=== PATIENT | male | born 1960 | race Caucasian/White ===

== ENCOUNTER 2018-07-05 19:29 | Inpatient (IN) | payer BC ==
[~2018-07-05] VITALS: Ht 177.8 cm; Wt 130.0 kg
[~2018-07-05 19:29] MED LIST: AMLO10 PO; AMOX875 PO; ATEN50 PO; BUPR150ER PO; CHLO25B PO; CLOP75 PO; CYCL10 PO; Crestor40 MG PO; GABA300 PO; HYDMOR2 PO; Isosorbide Mono60 MG PO; KETO10 PO; LEVFLO250 PO; LISI5 PO; Levaquin750 MG PO; METO25 PO; MORP15ER PO; MORP60ER PO; NITR.4SL SL; NORT25 PO; Naprosyn500 MG PO; Norco 10-325 T1 EACH PO; OXYC10TA19 PO; OXYC15ER PO; Pyridium200 MG PO; SPIHYD PO
[2018-07-05 19:48] LABS: BASOPHILS ABSOLUTE AUTO 0.08 K/mm3 (0.00-0.23); BASOPHILS PERCENT AUTO 1 % (0-2); EOSINOPHILS ABSOLUTE AUTO 0.21 K/mm3 (0.00-0.68); EOSINOPHILS PERCENT AUTO 1 % (0-6); Hemoglobin 15.3 g/dL (13.5-17.5); IMMATURE GRAN ABSOLUTE AUTO 0.07 K/mm3 (0.00-0.10); IMMATURE GRAN PERCENT AUTO 0 % (0-1); LYMPHOCYTES ABSOLUTE AUTO 3.27 K/mm3 (0.84-5.20); LYMPHOCYTES PERCENT AUTO 21 % (21-46); MONOCYTES ABSOLUTE AUTO 0.56 K/mm3 (0.16-1.47); MONOCYTES PERCENT AUTO 4 % (4-13); Mean Corpuscular HGB 32.3 pg (26.0-34.0); Mean Corpuscular HGB Conc 33.3 g/dL (31.5-36.5); Mean Corpuscular Volume 97 fL (80-100); Mean Platelet Volume 9.7 fL (9.1-12.4); NEUTROPHILS ABSOLUTE AUTO 11.45 K/mm3 (1.96-9.15); NEUTROPHILS PERCENT AUTO 73 % (41-73); Platelet Count 356 K/mm3 (150-400); RDW Coefficient Variation 13.7 % (11.7-14.2); RDW Standard Deviation 49.4 fL (35.1-46.3); Red Blood Cell Count 4.73 M/mm3 (4.30-5.90); White Blood Cell Count 15.64 K/mm3 (4.00-11.30)
[2018-07-05 19:51] LABS: Source, Urine Catheter
[2018-07-05 19:57] LABS: Appearance, Urine Cloudy (Clear); Blood, Urine 3+ (Neg); Color, Urine Amber (P-Yellow); Glucose Qualitative, Urine Neg (Neg); Ketones, Urine 1+ (Neg); Leukocyte Esterase, Urine 3+ (Neg); Nitrite, Urine Pos (Neg); Protein, Urine 3+ (Neg); Urobilinogen, Urine 2+ (Normal)
[2018-07-05 19:59] LABS: Bilirubin, Urine 2+ (Neg)
[2018-07-05 20:08] LABS: White Blood Cells, Urine TNTC /hpf (0-5)
[2018-07-05 20:10] LABS: Bacteria Many /hpf; Squamous Epithelial Cells Few /hpf (Few)
[2018-07-05 20:17] LABS: U Amphetamine Screen Not Detected; U Barbituate Screen Not Detected; U Benzodiazapine Screen Not Detected; U Buprenorphine Screen Not Detected; U Cannabinoids Screen Not Detected; U Cocaine Screen Not Detected; U Methadone Screen Not Detected; U Methamphetamine Screen DETECTED; U Opiates Screen Not Detected; U Oxycodone Screen Not Detected; U Phencyclidine Screen Not Detected; U Propoxyphene Screen Not Detected
[2018-07-05 20:29] LABS: Alanine Aminotransfer (ALT/SGP 22 U/L (12-78); Albumin, Blood 4.2 g/dL (3.4-5.0); Albumin/Globulin Ratio 1.3 (0.8-1.8); Alk Phos 60 U/L (50-136); Anion Gap 8 mmol/L (6-16); Aspartate Aminotrans (AST/SGOT 15 U/L (12-37); Bilirubin, Total 0.3 mg/dL (0.1-1.0); Blood Urea Nitrogen 10 mg/dL (8-24); Bun/Creatinine Ratio 9.6 (12.0-20.0); CO2, Blood 26 mmol/L (21-32); Calcium, Blood 8.8 mg/dL (8.5-10.1); Chloride, Blood 104 mmol/L (98-108); Creatinine, Blood 1.04 mg/dL (0.60-1.20); Ethanol (Alcohol), Blood, Med <3 mg/dL; Globulin, Blood 3.3 g/dL (2.2-4.0); Glomerular Filtration Rate >60 (60-); Glucose, Blood 134 mg/dL (70-99); Potassium, Blood 4.2 mmol/L (3.5-5.5); Sodium, Blood 138 mmol/L (136-145); Total Protein, Blood 7.5 g/dL (6.4-8.2); Troponin I <0.015 ng/mL (0.000-0.040)
[2018-07-05] MEDS ORDERED: Bisoprolol Fuma10 MG PO (20:55)
[2018-07-05] MEDS ORDERED: POTCHL20ER PO (21:21)
[2018-07-05] MEDS ORDERED: FURO40 PO (21:22)
[2018-07-05] MEDS ORDERED: CHLO25B PO (21:22)
[2018-07-05] MEDS ORDERED: RANO500T PO (21:23)
[2018-07-05] MEDS ORDERED: REPATHA SY140 MG/1 M SC (21:25)
--- NOTE | 2018-07-05 22:30 | NUR ---
Admission/[place] of Care: Patient arrived to unit at 2155hr via stretcher, accompanied by ED nurse. Intubated with 8.o ETT, 26cm @ lip. Ventilator to AC- 16/500/5/50%, O2-97%. Patient has random jerking/twitching movements throughout all extremities. Also occasionally reaching for tube/random gross movements of all extremities. No response to sternal rub, but responds to painful stimuli to cuticle. No gag reflex, but has cough and plantar reflex. Pupils equal at 3mm, but sluggish. Propofol gtt increased from 5mcg/kg/min to 30mcg/kg/min. NS bolus infusing per EMAR, will change to maintenance fluids when volume complete. Joselin NEWSOME, contacted Dr. Ramirez, received order for IV Abx. Peripheral IV's x2 patent and intact. Woody cath patent and intact, draining clear, dark yellow urine. Pt's and daughter at bedside. Will continue to monitor for pain, safety, comfort.
[2018-07-05 23:37] LABS: U Amphetamine Screen Not Detected; U Barbituate Screen Not Detected; U Benzodiazapine Screen Not Detected; U Buprenorphine Screen Not Detected; U Cannabinoids Screen Not Detected; U Cocaine Screen Not Detected; U Methadone Screen Not Detected; U Methamphetamine Screen Not Detected; U Opiates Screen Not Detected; U Oxycodone Screen Not Detected; U Phencyclidine Screen Not Detected; U Propoxyphene Screen Not Detected
[2018-07-06 04:20] LABS: BASOPHILS ABSOLUTE AUTO 0.04 K/mm3 (0.00-0.23); BASOPHILS PERCENT AUTO 0 % (0-2); EOSINOPHILS ABSOLUTE AUTO 0.12 K/mm3 (0.00-0.68); EOSINOPHILS PERCENT AUTO 1 % (0-6); Hematocrit 36.8 % (37.0-53.0); Hemoglobin 12.2 g/dL (13.5-17.5); IMMATURE GRAN ABSOLUTE AUTO 0.03 K/mm3 (0.00-0.10); IMMATURE GRAN PERCENT AUTO 0 % (0-1); LYMPHOCYTES ABSOLUTE AUTO 2.95 K/mm3 (0.84-5.20); LYMPHOCYTES PERCENT AUTO 26 % (21-46); MONOCYTES ABSOLUTE AUTO 0.59 K/mm3 (0.16-1.47); MONOCYTES PERCENT AUTO 5 % (4-13); Mean Corpuscular HGB 32.2 pg (26.0-34.0); Mean Corpuscular HGB Conc 33.2 g/dL (31.5-36.5); Mean Corpuscular Volume 97 fL (80-100); Mean Platelet Volume 9.7 fL (9.1-12.4); NEUTROPHILS ABSOLUTE AUTO 7.66 K/mm3 (1.96-9.15); NEUTROPHILS PERCENT AUTO 67 % (41-73); Platelet Count 271 K/mm3 (150-400); RDW Coefficient Variation 13.8 % (11.7-14.2); RDW Standard Deviation 49.7 fL (35.1-46.3); Red Blood Cell Count 3.79 M/mm3 (4.30-5.90); White Blood Cell Count 11.39 K/mm3 (4.00-11.30)
[2018-07-06 04:41] LABS: Alanine Aminotransfer (ALT/SGP 18 U/L (12-78); Albumin, Blood 3.3 g/dL (3.4-5.0); Albumin/Globulin Ratio 1.3 (0.8-1.8); Alk Phos 48 U/L (50-136); Anion Gap 6 mmol/L (6-16); Aspartate Aminotrans (AST/SGOT 12 U/L (12-37); Bilirubin, Total 0.4 mg/dL (0.1-1.0); Blood Urea Nitrogen 10 mg/dL (8-24); Bun/Creatinine Ratio 11.9 (12.0-20.0); CO2, Blood 24 mmol/L (21-32); Calcium, Blood 7.8 mg/dL (8.5-10.1); Chloride, Blood 110 mmol/L (98-108); Creatinine, Blood 0.84 mg/dL (0.60-1.20); Globulin, Blood 2.6 g/dL (2.2-4.0); Glomerular Filtration Rate >60 (60-); Glucose, Blood 99 mg/dL (70-99); Potassium, Blood 3.5 mmol/L (3.5-5.5); Sodium, Blood 140 mmol/L (136-145); Total Protein, Blood 5.9 g/dL (6.4-8.2)
[2018-07-06 04:44] LABS: CPK Creatine Kinase 124 U/L (39-308); Creatine Kinase MB 3.7 ng/mL (0.0-3.6); Troponin I <0.015 ng/mL (0.000-0.040)
--- NOTE | 2018-07-06 06:30 | NUR ---
Shift Summary: No changes to settings throughout shift (AC-16/500/5/50%), O2-94-98%. Systolic BP's high 80's-110, MAP's 65-70's. Propofol gtt titrated down from 30mcg/kg/min to 15mcg/kg/min per low BP's and HR in the 50's. Some improvement seen in BP after decreasing propofol gtt, prn Ativan given x2 per agitation/restlessness with good effect noted. Improvement in neurological status noted throughout shift. Now able to follow some commands when awake, opening eyes, squeezing hands. Also becomes agitated when awake and difficult to verbally re-direct. Woody cath remains patent and intact, draining dark yellow clear urine. Peripheral IV's x2 remain patent and intact. Appears calm, comfortable at this time. Will continue to monitor until report to day shift RN.
--- NOTE | 2018-07-06 10:04 | NUR ---
PT SEDATED ON PROPOFOL AT 15MCG FOR MECH VENT. PT AGITATED AND RESTLESS, ABLE TO FOLLOW SIMPLE COMMANDS, EYES REMAIN CLOSED. UNABLE TO CALM OR REDIRECT. PROPOFOL INCREASED TO 35MCG. PT HYPOTENSIVE W MAP >65 THIS AM. BP CONT TO TREND DOWN; DR STALLWORTH AT BEDSIDE; AWARE. 1 LITER NS BOLUS ORDERED ALONG W ALBUMIN. AT BEDSIDE; DR STALLWORTH SPENT SIGNIFICANT AMT OF TIME SPEAKING W . PAS PLACED. BT'S ALMOST ABSENT. BOWELS TYMPANIC, AND VERY DISTENDED BUT SOFT.
--- NOTE | 2018-07-06 12:13 | NUR ---
PROPOFOL DECREASED TO 10MCG. PT PLACED ON PS FOR BREATHING TRIAL PER DR STALLWORTH. PT NODS HEAD APPROPRIATELY TO QUESTIONS
[2018-07-06 13:47] LABS: CPK Creatine Kinase 98 U/L (39-308); Creatine Kinase MB 2.8 ng/mL (0.0-3.6); Creatine Kinase MB Index 2.9 (0.0-4.0)
[2018-07-06 13:48] LABS: Troponin I <0.015 ng/mL (0.000-0.040)
[2018-07-06 13:57] LABS: PCO2 Arterial 33.7 mmHg (35-45); PO2 Arterial 62.3 mmHg (80-100); pH Blood Arterial 7.43 (7.35-7.45)
--- NOTE | 2018-07-06 14:16 | NUR ---
PT EXTUBATED AT 1412. 5L VIA N/C PLACED ON PT. NG TUBE DC'D. RESTRAINTS REMOVED. PT AWAKE AND FOLLOWING DIRECTIONS
--- NOTE | 2018-07-06 17:49 | NUR ---
Initial Spiritual care visit: I met with Kalpesh and his dtr at bedside. Dtr spoke about her father's stubborness and her love for him. Kalpesh tells me he does not understand how he got so sick. He appears genuinely bewildered as to why he became critically ill. He denies any history of health problems and says he "feels like crap." I encouraged asking for a clear, understandable explaination of his health concerns. On the other hand though, he seemed to not really want to know. It appears important to Kalpesh to be able to live his life that way he wants to. His dtr admits Kalpesh's lack of attention to his health has been life-long. Regardless, both responded well to encouragement and affirmation of love. Kalpesh is Hindu in label only. He does not participate in any adonis community and denied prayer. I will remain available.
--- NOTE | 2018-07-06 18:07 | NUR ---
PT MEDICATED WITH FENT 50MCG FOR 6/10 PAIN TO LOWER BACK AND LEFT FLANK. BP IMPROVED AFTER FENT. SATS 89-90% ON 5L VIA N/C. 02 INCREASED TO 6L. PT'S CALLED TO ASK HER TO BRING IN PT'S CPAP; DR STALLWORTH HAS ORDERED THAT HE MAY USE HIS HOME CPAP.
--- NOTE | 2018-07-06 19:15 | NUR ---
ASSUMED CARE ASSUMED CARE OF PATIENT. AWAKE AND ALERT. VISITING WITH FAMILY. REPOSITIONS SELF IN BED. CONTINUES TO C/O LOW BACK PAIN AND LEFT FLANK PAIN- RECENTLY MEDICATED WITH PAIN MEDS BY PREVIOUS RN. O2 @ 6L NC. SOB/DYSPNEA NOTED WITH EXERTION. FREQUENT MOIST COUGH PRODUCTIVE OF THICK TANNISH-BROWN SPUTUM. DENIES C/O NAUSEA AT THIS TIME. TAKING SIPS OF WATER WITHOUT DIFFICULTY. NS INFUSING @ 125CC/HR UNTIL CURRENT BAG IS COMPLETE. COLLADO PATENT AND DRAINIG CLEAR DARK YELLOW URINE. SEE SHIFT ASSESSMENT FOR FULL ASSESSMENT.
[2018-07-06 21:08] LABS: Troponin I 0.028 ng/mL (0.000-0.040)
[2018-07-06 21:18] LABS: Creatine Kinase MB 17.4 ng/mL (0.0-3.6)
[2018-07-06 21:24] LABS: Creatine Kinase MB Index 1.1 (0.0-4.0)
--- NOTE | 2018-07-06 22:15 | NUR ---
INCREASED PAIN/CALL TO MD PT CONTINUES TO C/O PAIN IN LEFT FLANK DESPITE PAIN MEDS GIVEN. STATES PAIN IS A 5/10 CONSTANTLY WITH 9/10 SURGES OF PAIN. CALL TO ADALID DARDEN NP AT THIS TIME. NEW ORDERS RECEIVED.
[2018-07-06 22:52] LABS: Source, Urine Catheter
[2018-07-06 23:07] LABS: Appearance, Urine Clear (Clear); Bilirubin, Urine Neg (Neg); Blood, Urine 3+ (Neg); Color, Urine Yellow (P-Yellow); Glucose Qualitative, Urine Neg (Neg); Ketones, Urine Neg (Neg); Leukocyte Esterase, Urine 1+ (Neg); Nitrite, Urine Neg (Neg); Protein, Urine Neg (Neg); Specific Gravity, Urine 1.005 (1.003-1.022); Urobilinogen, Urine NORM (Normal); pH, Urine 6.5 (5.0-8.0)
[2018-07-06 23:14] LABS: Bacteria Few /hpf; Red Blood Cells, Urine 0-2 /hpf (0-2); Squamous Epithelial Cells Not Seen /hpf (Few); White Blood Cells, Urine 0-2 /hpf (0-5)
[2018-07-07 04:24] LABS: BASOPHILS ABSOLUTE AUTO 0.05 K/mm3 (0.00-0.23); BASOPHILS PERCENT AUTO 0 % (0-2); EOSINOPHILS ABSOLUTE AUTO 0.04 K/mm3 (0.00-0.68); EOSINOPHILS PERCENT AUTO 0 % (0-6); Hematocrit 34.9 % (37.0-53.0); Hemoglobin 11.8 g/dL (13.5-17.5); IMMATURE GRAN ABSOLUTE AUTO 0.04 K/mm3 (0.00-0.10); IMMATURE GRAN PERCENT AUTO 0 % (0-1); LYMPHOCYTES ABSOLUTE AUTO 3.51 K/mm3 (0.84-5.20); LYMPHOCYTES PERCENT AUTO 30 % (21-46); MONOCYTES ABSOLUTE AUTO 0.64 K/mm3 (0.16-1.47); MONOCYTES PERCENT AUTO 5 % (4-13); Mean Corpuscular HGB 32.8 pg (26.0-34.0); Mean Corpuscular HGB Conc 33.8 g/dL (31.5-36.5); Mean Corpuscular Volume 97 fL (80-100); Mean Platelet Volume 9.9 fL (9.1-12.4); NEUTROPHILS ABSOLUTE AUTO 7.52 K/mm3 (1.96-9.15); NEUTROPHILS PERCENT AUTO 64 % (41-73); Platelet Count 222 K/mm3 (150-400); RDW Coefficient Variation 13.8 % (11.7-14.2); RDW Standard Deviation 49.4 fL (35.1-46.3)
[2018-07-07 04:47] LABS: Albumin, Blood 3.1 g/dL (3.4-5.0); Anion Gap 8 mmol/L (6-16); Blood Urea Nitrogen 11 mg/dL (8-24); Bun/Creatinine Ratio 12.6 (12.0-20.0); CO2, Blood 24 mmol/L (21-32); Calcium, Blood 7.9 mg/dL (8.5-10.1); Chloride, Blood 111 mmol/L (98-108); Creatine Kinase MB 15.5 ng/mL (0.0-3.6); Creatinine, Blood 0.88 mg/dL (0.60-1.20); Glomerular Filtration Rate >60 (60-); Glucose, Blood 77 mg/dL (70-99); Phosphorus, Blood 3.1 mg/dL (2.5-4.9); Potassium, Blood 2.9 mmol/L (3.5-5.5); Sodium, Blood 143 mmol/L (136-145)
[2018-07-07 04:55] LABS: CPK Creatine Kinase 2328 U/L (39-308); Creatine Kinase MB Index 0.7 (0.0-4.0)
--- NOTE | 2018-07-07 06:44 | NUR ---
SHIFT SUMMARY NO ACUTE CHANGES DURING NOC. SLEPT INTERMITTENTLY. USED CPAP WITH 4L O2 BLEED-IN WHILE ASLEEP. O2 @ 6LNC WHEN AWAKE. CONTINUES WITH MOIST COUGH PRODUCTIVE OF THICK TANNISH SPUTUM. SOB/DYSPNEA NOTED WITH EXERTION. CONTINUES WITH C/O LEFT FLANK PAIN T/O SHIFT- MEDICATED WITH MS CONTIN (SCHEDULED) X 1, ROXICODONE 10MG PO X 1, FENTANYL 50MCG IV X 1, TORADOL 30MG IV X 1, AND DILAUDID 1MG IV X 2 DOSES DURING NOC. PT STATES THAT DILAUDID HAS WORKED THE BEST. COLLADO PATENT AND DRAINING DARK YELLOW URINE. NS INFUSING AT 125CC/HR PER ORDER. VSS. MONITOR SHOWS SR WITH FIRST DEGREE AV BLOCK. AFEBRILE T/O NOC. PAS OFF AT THIS TIME. WILL REPORT TO DAY SHIFT RN WHEN AVAILABLE.
--- NOTE | 2018-07-07 10:52 | NUR ---
ASSUMED CARE: RECIEVED REPORT FROM MERCEDEZ [place]. PT ALERT AND ORIENTED, COOPERATIVE. FAMILY AT BEDSIDE. LUNG SOUNDS DIMINISHED LOWER LOBES. NC AT 6L, SOB AND WEAK ON EXERTION. TRANSFERRED TO [facility] INDEPENDENTLY. TAKEN TO CT AT THIS TIME.
--- NOTE | 2018-07-07 11:49 | NUR ---
0700: CARE ASSUMED. PT LYING IN BED WITH EYES CLOSED, O2 6L/NC, SPO2 97%. VSS. 0800: ASSESSMENT COMPLETED, PT A&OX4, VSS, SPO2 REMAINS HIGH 90'S ON 6L/NC. PT REPORTS LEFT FLANK PAIN RADIATING DOWN LEFT BUTTOCK/LEG AND INTO TESTICLES, HX OF KIDNEY STONES. PT MEDICATED WITH FENTANYL PER ORDERS. LS CLEAR, DIMINISHED, NO CRACKLES/RHONCHI NOTED. OCCASIONAL COUGH PRODUCTUVE OF JUAREZ/YELLOW SPUTUM. 0915: PT REPORTS PAIN RELIEF FROM FENTANYL WAS SHORT LIVED, MEDICATED WITH DILAUDID AT THIS TIME FOR LEFT FLANK PAIN 09/08. DR. STALLWORTH IN TO SEE PT, AWARE OF FLANK PAIN AND STONE HX. 1030: PT PCU STATUS, SALINE LOCKED, GENERAL DIET. PT TOLERATED BREAKFAST FAIRLY WELL, ATE 100% BUT C/O MILD NAUSEA AFTER EATING, DENIES NEED FOR ANTIEMETIC. VS REMAIN STABLE, PT ON 6L/NC 97%, REPORTS RELIEF FROM DILAUDID. AT BEDSIDE, REPORT TO MERCEDEZ MILLER.
--- NOTE | 2018-07-07 17:54 | NUR ---
SHIFT SUMMARY: PT HAS BEEN WORKING WITH PT/OT THIS SHIFT. FAMILY AT BEDSIDE MAJORITY OF DAY. PLAN IS FOR DC IN NEXT FEW DAYS. CONTINUING TO TITRATE PT OFF OF O2. CURRENTLY ON 6L. SOB WITH EXERTION. MEDICATING FOR PAIN TO LEFT FLANK AND GROIN AREA ABLE. NO FURTHER NEEDS OR CONCERNS NOTED THIS SHIFT
--- NOTE | 2018-07-07 19:37 | NUR ---
TRANSFER TO MEDICAL REPORT CALLED TO MEDICAL FLOOR RN TO ASSUME CARE. ALL QUESTIONS ANSWERED. PT TAKEN TO ROOM 306 VIA BED, ALL MEDS AND BELONGINGS TAKEN WITH PT.
[2018-07-08 05:44] LABS: BASOPHILS ABSOLUTE AUTO 0.04 K/mm3 (0.00-0.23); BASOPHILS PERCENT AUTO 0 % (0-2); EOSINOPHILS ABSOLUTE AUTO 0.09 K/mm3 (0.00-0.68); EOSINOPHILS PERCENT AUTO 1 % (0-6); Hematocrit 34.3 % (37.0-53.0); Hemoglobin 11.5 g/dL (13.5-17.5); IMMATURE GRAN ABSOLUTE AUTO 0.03 K/mm3 (0.00-0.10); IMMATURE GRAN PERCENT AUTO 0 % (0-1); LYMPHOCYTES ABSOLUTE AUTO 2.81 K/mm3 (0.84-5.20); LYMPHOCYTES PERCENT AUTO 30 % (21-46); MONOCYTES ABSOLUTE AUTO 0.52 K/mm3 (0.16-1.47); MONOCYTES PERCENT AUTO 6 % (4-13); Mean Corpuscular HGB 32.3 pg (26.0-34.0); Mean Corpuscular HGB Conc 33.5 g/dL (31.5-36.5); Mean Corpuscular Volume 96 fL (80-100); Mean Platelet Volume 9.8 fL (9.1-12.4); NEUTROPHILS ABSOLUTE AUTO 5.89 K/mm3 (1.96-9.15); NEUTROPHILS PERCENT AUTO 63 % (41-73); Platelet Count 205 K/mm3 (150-400); RDW Coefficient Variation 13.5 % (11.7-14.2); Red Blood Cell Count 3.56 M/mm3 (4.30-5.90); White Blood Cell Count 9.38 K/mm3 (4.00-11.30)
[2018-07-08 06:16] LABS: Anion Gap 7 mmol/L (6-16); Blood Urea Nitrogen 8 mg/dL (8-24); Bun/Creatinine Ratio 9.5 (12.0-20.0); CO2, Blood 26 mmol/L (21-32); Calcium, Blood 8.3 mg/dL (8.5-10.1); Chloride, Blood 108 mmol/L (98-108); Creatinine, Blood 0.84 mg/dL (0.60-1.20); Glomerular Filtration Rate >60 (60-); Glucose, Blood 92 mg/dL (70-99); Phosphorus, Blood 3.7 mg/dL (2.5-4.9); Potassium, Blood 3.4 mmol/L (3.5-5.5); Sodium, Blood 141 mmol/L (136-145)
[2018-07-08 06:37] LABS: CPK Creatine Kinase 1204 U/L (39-308)
--- NOTE | 2018-07-08 07:27 | NUR ---
SHIFT SUMMARY RECIEVED REPORT FROM ASSOCIATE PUBLISHER. ARRIVED TO MEDICAL UNIT VIA BED. TRANSFERED WITH MODERATE ASSISTANCE; APPEARED WEAKENED ON TRANSFER. ORIENTED TO ROOM. SET UP HOME CPAP, CONT. BIOX AND HUMIDIFIED AIR. A/O, ABLE TO MAKE NEEDS KNOWN. COOPERATIVE WITH CARE. CALLS AND ANSWERS QUESTIONS APPROPRIATELY. C/O PAIN/DISCOMFORT TO L FLANK/BUTTOCK/TESTICALS THROUGHOUT SHIFT; MEDICATED PER EMAR. VSS/AFEBRILE. NO ACUTE CHANGES OVERNIGHT. BED IN LOWEST POSITION. CALL LIGHT AND BELONGINGS WITHIN REACH. CONTINUED TO MONITOR THROUGHOUT SHIFT. REPORT GIVEN TO DAY RN.
--- NOTE | 2018-07-08 17:43 | NUR ---
PT AOX4 AND COOPERATIVE OF ALL CARE. PT HAS BEEN A ONE PERSON ASSIST TO CHAIR AND BED. PT ALSO WORKED WITH PT WITH A WALKER AND MOVING AROUND. PT GET SOB WITH VERY LITTLE MOVEMENT AT THIS TIME. PT TREATED FOR PAIN PER EMAR. WILL CONTINUE TO MONITOR.
[2018-07-09 04:39] LABS: BASOPHILS ABSOLUTE AUTO 0.03 K/mm3 (0.00-0.23); BASOPHILS PERCENT AUTO 0 % (0-2); EOSINOPHILS ABSOLUTE AUTO 0.18 K/mm3 (0.00-0.68); EOSINOPHILS PERCENT AUTO 2 % (0-6); Hematocrit 35.6 % (37.0-53.0); Hemoglobin 11.8 g/dL (13.5-17.5); IMMATURE GRAN ABSOLUTE AUTO 0.02 K/mm3 (0.00-0.10); IMMATURE GRAN PERCENT AUTO 0 % (0-1); LYMPHOCYTES PERCENT AUTO 33 % (21-46); MONOCYTES ABSOLUTE AUTO 0.49 K/mm3 (0.16-1.47); MONOCYTES PERCENT AUTO 6 % (4-13); Mean Corpuscular HGB 32.3 pg (26.0-34.0); Mean Corpuscular HGB Conc 33.1 g/dL (31.5-36.5); Mean Corpuscular Volume 98 fL (80-100); Mean Platelet Volume 10.1 fL (9.1-12.4); NEUTROPHILS ABSOLUTE AUTO 4.82 K/mm3 (1.96-9.15); NEUTROPHILS PERCENT AUTO 59 % (41-73); Platelet Count 232 K/mm3 (150-400); RDW Coefficient Variation 13.2 % (11.7-14.2); RDW Standard Deviation 47.8 fL (35.1-46.3); Red Blood Cell Count 3.65 M/mm3 (4.30-5.90); White Blood Cell Count 8.24 K/mm3 (4.00-11.30)
[2018-07-09 05:00] LABS: Albumin, Blood 2.8 g/dL (3.4-5.0); Anion Gap 3 mmol/L (6-16); Blood Urea Nitrogen 8 mg/dL (8-24); CO2, Blood 29 mmol/L (21-32); Calcium, Blood 8.4 mg/dL (8.5-10.1); Chloride, Blood 107 mmol/L (98-108); Glomerular Filtration Rate >60 (60-); Glucose, Blood 104 mg/dL (70-99); Magnesium, Blood 2.3 mg/dL (1.6-2.4); Potassium, Blood 3.7 mmol/L (3.5-5.5); Sodium, Blood 139 mmol/L (136-145)
--- NOTE | 2018-07-09 06:26 | NUR ---
SUMMARY: 57 Y/O MALE RESTED COMFORTABLY ALL EVENING. PT COLLADO DRAINING CLEAR YELLOW FLUID. PT C/O ABD PAIN X 2 AND WAS MEDICATED WITH DILAUDID 1 MG AND ROXCODONE 10MG WITH RELIEF FELT. PT DENIES NAUSEA, HAPPY AND COOPERATIVE DURING ASSESSMENT. PTS BED LOW POSITION, CALL LIGHT AT SIDE.
--- NOTE | 2018-07-09 15:15 | NUR ---
SHIFT SUMMARY 57 YR OLD MALE ADMITTED FOR ACUTE RESPIRATORY FAILURE. FULL CODE. PT ADMITTED UNRESPONSIVE W/ ASPIRATION PNEUMONIA AND UTI. EXTUBATED ON THURSDAY. PT HAS NEUROGENIC BLADDER, SELF CATHS AT HOME. HERE, HE HAS A COLLADO IN. SOB, DYSPNEA W/EXERTION (INCLUDING EATING). REGULAR DIET, TAKES HIS PILLS WHOLE. POWERGLIDE IN RUE. 18 IV IN LEFT HAND. LUNGS SOUND COARSE THROUGHOUT. 1 STANDBY ASSIST. LIVES AT HOME W/. HX:CAD, HTN, HIGH CHOLESTEROL, NEUROGENIC BLADDER, BACK SURGERY (CHRONIC PAIN RX), SLEEP APNEA (CPAP @ NIGHT). 6 LPM O2 VIA NC. SCD'S FOR DVT PREVENTION.
--- NOTE | 2018-07-09 17:58 | NUR ---
CALLED HOSPITALIST INFORMED HER THAT PT'S URINE IS SHOWING A TINGE OF BLOOD IN THE URINE (CATHETER COLLECTION BAG). NO NEW ORDERS. ALSO INFORMED HER THAT THE PT REQUESTS MEDICATION TO HELP HIM SLEEP. AWAITING NEW ORDERS IN EMAR.
[2018-07-10 05:03] LABS: BASOPHILS ABSOLUTE AUTO 0.05 K/mm3 (0.00-0.23); BASOPHILS PERCENT AUTO 1 % (0-2); EOSINOPHILS ABSOLUTE AUTO 0.21 K/mm3 (0.00-0.68); EOSINOPHILS PERCENT AUTO 3 % (0-6); Hematocrit 35.2 % (37.0-53.0); Hemoglobin 11.8 g/dL (13.5-17.5); IMMATURE GRAN ABSOLUTE AUTO 0.02 K/mm3 (0.00-0.10); IMMATURE GRAN PERCENT AUTO 0 % (0-1); LYMPHOCYTES ABSOLUTE AUTO 2.25 K/mm3 (0.84-5.20); LYMPHOCYTES PERCENT AUTO 30 % (21-46); MONOCYTES ABSOLUTE AUTO 0.42 K/mm3 (0.16-1.47); MONOCYTES PERCENT AUTO 6 % (4-13); Mean Corpuscular HGB 32.1 pg (26.0-34.0); Mean Corpuscular HGB Conc 33.5 g/dL (31.5-36.5); Mean Corpuscular Volume 96 fL (80-100); Mean Platelet Volume 9.9 fL (9.1-12.4); NEUTROPHILS ABSOLUTE AUTO 4.51 K/mm3 (1.96-9.15); NEUTROPHILS PERCENT AUTO 60 % (41-73); Platelet Count 227 K/mm3 (150-400); RDW Coefficient Variation 13.2 % (11.7-14.2); Red Blood Cell Count 3.68 M/mm3 (4.30-5.90); White Blood Cell Count 7.46 K/mm3 (4.00-11.30)
[2018-07-10 05:41] LABS: Anion Gap 5 mmol/L (6-16); Blood Urea Nitrogen 9 mg/dL (8-24); Bun/Creatinine Ratio 12.3 (12.0-20.0); CO2, Blood 28 mmol/L (21-32); Calcium, Blood 8.7 mg/dL (8.5-10.1); Chloride, Blood 106 mmol/L (98-108); Creatinine, Blood 0.73 mg/dL (0.60-1.20); Glomerular Filtration Rate >60 (60-); Glucose, Blood 111 mg/dL (70-99); Potassium, Blood 3.8 mmol/L (3.5-5.5); Sodium, Blood 139 mmol/L (136-145)
--- NOTE | 2018-07-10 17:22 | NUR ---
SHIFT SUMMARY PATIENT A&O X4, INDEPENDENT IN THE ROOM. C/O PAIN TO LOWER BACK, LEFT TESTICLE, AND LEFT LEG THIS SHIFT. RN MEDICATED PER Apr. O2 TITRATED DOWN TO 1L NC, SATS >90%. COLLADO D/C THIS SHIFT, PATIENT SELF CATHING PER HIS BASELINE. NO ACUTE CHANGES THIS SHIFT. RN WILL CONTINUE TO MONITOR.
--- NOTE | 2018-07-11 17:35 | NUR ---
SHIFT SUMMARY THE PATIENT PRESENTED THIS MORNING WITH VITALS WNL, A7O X4 AND WITH CLEAR LUNGS. THE PATIENT BIGGEST COMPLAINT MICHAEL SHIFT WAS PAIN, AND HAS RECEIVED PAIN MEDICATIONS ORDERED. THE PATIENT'S SPOUSE WAS HERE MID SHIFT AND TOOK THE PATIENT FOR A WALK AROUND THE FLOOR. THE PATIENT DID WELL WITH 2 LITERS OF O2. THE PATIENT IS EATING HIS DINNER AT THIS TIME, WILL CONTINUE TO MONITOR.
[2018-07-12 11:06] LABS: AMITRIPTYLINE Negative (Cutoff=100); CLOMIPRAMINE Negative (Cutoff=100); CYCLOBENZAPRINE Positive (.); CYCLOBENZAPRINE CONF 458 ng/mL (Cutoff=100); DESIPRAMINE Negative (Cutoff=100); DOXEPIN Negative (Cutoff=100); IMIPRAMINE Negative (Cutoff=100); NORDOXEPIN Negative (Cutoff=100); NORTRIPTYLINE Positive (.); NORTRIPTYLINE CONF 758 ng/mL (Cutoff=100); PROTRIPTYLINE Negative (Cutoff=100); TRICYCLIC ANTIDEP Positive ng/mL (Cutoff=100); TRIMIPRAMINE Negative (Cutoff=100)
[2018-07-12] MEDS ORDERED: CEPH500 PO (11:57)
--- NOTE | 2018-07-12 13:46 | NUR ---
PT DISCHARGED AT 1330 ON 07/12/18. PT WHEELED DOWN STAIRS BY MORTICIAN HELPER. DROVE THE PATIENT HOME.
== END 2018-07-12 13:37 | disposition home or self-care (01) | DRG 208 ==
LOC: ER 19:29 → ICUE 21:14 → ICUW 21:14 → ICUE 22:03 → MEDS 07-07 19:46 → ENPENDDIS 07-12 11:20 → MEDS 07-12 13:37
PROVIDERS: Emergency Medicine; Internal Medicine; Internal Medicine Critical Care Medicine; Nurse Practitioner Acute Care; ADMIT Internal Medicine
PROC: 0BH18EZ Insertion of Endotracheal Airway into Trachea, Via Natural or Artificial Opening Endoscopic (ICD-10-PCS; principal; 2018-07-05)
PROC: 5A1945Z Respiratory Ventilation, 24-96 Consecutive Hours (ICD-10-PCS; 2018-07-05)
DX: J96.01 Acute respiratory failure with hypoxia (principal); J69.0 Pneumonitis due to inhalation of food and vomit; A41.9 Sepsis, unspecified organism; G92 Toxic encephalopathy; R65.20 Severe sepsis without septic shock; A41.81 Sepsis due to Enterococcus; N39.0 Urinary tract infection, site not specified; I25.10 Atherosclerotic heart disease of native coronary artery without angina pectoris; I10 Essential (primary) hypertension; E78.00 Pure hypercholesterolemia, unspecified; N31.9 Neuromuscular dysfunction of bladder, unspecified; G47.33 Obstructive sleep apnea (adult) (pediatric); Z79.82 Long term (current) use of aspirin; Z87.891 Personal history of nicotine dependence; M54.9 Dorsalgia, unspecified; Z95.1 Presence of aortocoronary bypass graft; Z79.02 Long term (current) use of antithrombotics/antiplatelets; Z68.39 Body mass index [BMI] 39.0-39.9, adult; G89.4 Chronic pain syndrome; I95.9 Hypotension, unspecified; E66.01 Morbid (severe) obesity due to excess calories; E87.6 Hypokalemia
CPT/HCPCS: 31500; 31720; 36415; 36600; 51702; 70450; 70496; 70498; 71045; 74176; 80048; 80053; 80069; 80369; 81001; 82550; 82553; 82803; 83605; 83735; 84484; 85025; 87040; 87077; 87086; 87147; 87186; 93005; 93010; 94002; 94003; 94761; 94762; 96374-59; 97110; 97116; 97162; 97166; 97530; 97535; 99291-25; 99292; C9113; G0480; G0481; J0330; J0696; J1170; J1650; J1885; J2060; J2704; J3010; J7030; J7050; J7120; P9046; Q9967

== ENCOUNTER 2022-07-10 13:08 | Inpatient (IN) | payer BC ==
[~2022-07-10] VITALS: Ht 177.8 cm; Wt 110.2 kg
[~2022-07-10 13:08] MED LIST changes: +Bisoprolol Fuma10 MG PO; +CEPH500 PO; +FURO40 PO; +POTCHL20ER PO; +RANO500T PO; +REPATHA SY140 MG/1 M SC
[2022-07-10 13:55] LABS: BASOPHILS ABSOLUTE AUTO 0.02 K/mm3 (0.00-0.23); BASOPHILS PERCENT AUTO 0 % (0-2); EOSINOPHILS PERCENT AUTO 0 % (0-6); Hematocrit 33.2 % (37.0-53.0); Hemoglobin 11.4 g/dL (13.5-17.5); IMMATURE GRAN ABSOLUTE AUTO 0.11 K/mm3 (0.00-0.10); IMMATURE GRAN PERCENT AUTO 1 % (0-1); LYMPHOCYTES ABSOLUTE AUTO 1.51 K/mm3 (0.84-5.20); LYMPHOCYTES PERCENT AUTO 10 % (21-46); MONOCYTES ABSOLUTE AUTO 0.72 K/mm3 (0.16-1.47); MONOCYTES PERCENT AUTO 5 % (4-13); Mean Corpuscular HGB 30.6 pg (26.0-34.0); Mean Corpuscular HGB Conc 34.3 g/dL (31.5-36.5); Mean Corpuscular Volume 89 fL (80-100); NEUTROPHILS ABSOLUTE AUTO 12.43 K/mm3 (1.96-9.15); NEUTROPHILS PERCENT AUTO 84 % (41-73); Platelet Count 421 K/mm3 (150-400); RDW Coefficient Variation 17.9 % (11.7-14.2); RDW Standard Deviation 58.5 fL (35.1-46.3); Red Blood Cell Count 3.72 M/mm3 (4.30-5.90); White Blood Cell Count 14.79 K/mm3 (4.00-11.30)
[2022-07-10 14:06] LABS: Source, Urine Straight Cath
[2022-07-10 14:09] LABS: Appearance, Urine Hazy (Clear); Bilirubin, Urine Neg (Neg); Blood, Urine 5+ (Neg); Color, Urine Yellow (P-Yellow); Glucose Qualitative, Urine Neg (Neg); Ketones, Urine Neg (Neg); Leukocyte Esterase, Urine 3+ (Neg); Nitrite, Urine Neg (Neg); Protein, Urine 3+ (Neg); Specific Gravity, Urine 1.015 (1.003-1.022); Urobilinogen, Urine 1+ (Normal)
[2022-07-10 14:17] LABS: Albumin, Blood 2.2 g/dL (3.4-5.0); Albumin/Globulin Ratio 0.4 (0.8-1.8); Bilirubin, Total 1.1 mg/dL (0.1-1.0); Bun/Creatinine Ratio 20.3 (12.0-20.0); Calcium, Blood 8.8 mg/dL (8.5-10.1); Creatinine, Blood 1.77 mg/dL (0.60-1.20); Magnesium, Blood 2.4 mg/dL (1.6-2.4); Total Protein, Blood 7.2 g/dL (6.4-8.2)
[2022-07-10 14:18] LABS: Bacteria Many /hpf; Squamous Epithelial Cells Rare /hpf (Few); White Blood Cells, Urine 25-50 /hpf (0-5)
[2022-07-10] MEDS ORDERED: DULOXETINE HCL60 M1 PO (19:51)
[2022-07-10] MEDS ORDERED: ELIQUIS5 M3 PO (19:51)
[2022-07-10] MEDS ORDERED: OXYC5 PO (19:56)
[2022-07-10] MEDS ORDERED: Chantix1 MG (19:56)
[2022-07-10] MEDS ORDERED: MS Contin15 MG PO (19:56)
[2022-07-10] MEDS ORDERED: METO100ER PO (19:57)
[2022-07-10] MEDS ORDERED: PREG150 PO (19:57)
[2022-07-10 21:19] LABS: Base Excess Venous -4.1 mmol/L; Bicarbonate Venous 20.5 mmol/L (24.0-30.0); PCO2 Venous 41.9 mmHg (38-42); pH Blood Venous 7.33 (7.34-7.37)
[2022-07-11 00:56] VITALS: BP 117/63
[2022-07-11 04:00] VITALS: BP 105/67
[2022-07-11 04:24] LABS: BASOPHILS ABSOLUTE AUTO 0.01 K/mm3 (0.00-0.23); BASOPHILS PERCENT AUTO 0 % (0-2); EOSINOPHILS PERCENT AUTO 0 % (0-6); Hematocrit 26.7 % (37.0-53.0); Hemoglobin 9.2 g/dL (13.5-17.5); IMMATURE GRAN ABSOLUTE AUTO 0.09 K/mm3 (0.00-0.10); IMMATURE GRAN PERCENT AUTO 1 % (0-1); LYMPHOCYTES ABSOLUTE AUTO 1.39 K/mm3 (0.84-5.20); LYMPHOCYTES PERCENT AUTO 11 % (21-46); MONOCYTES ABSOLUTE AUTO 0.78 K/mm3 (0.16-1.47); MONOCYTES PERCENT AUTO 6 % (4-13); Mean Corpuscular HGB 30.3 pg (26.0-34.0); Mean Corpuscular HGB Conc 34.5 g/dL (31.5-36.5); Mean Corpuscular Volume 88 fL (80-100); NEUTROPHILS ABSOLUTE AUTO 9.92 K/mm3 (1.96-9.15); NEUTROPHILS PERCENT AUTO 81 % (41-73); Platelet Count 332 K/mm3 (150-400); RDW Coefficient Variation 17.7 % (11.7-14.2); RDW Standard Deviation 56.8 fL (35.1-46.3); Red Blood Cell Count 3.04 M/mm3 (4.30-5.90); White Blood Cell Count 12.19 K/mm3 (4.00-11.30)
[2022-07-11 04:48] LABS: Magnesium, Blood 2.4 mg/dL (1.6-2.4)
[2022-07-11 04:49] LABS: Albumin, Blood 1.9 g/dL (3.4-5.0); Albumin/Globulin Ratio 0.5 (0.8-1.8); Bun/Creatinine Ratio 16.3 (12.0-20.0); Calcium, Blood 7.9 mg/dL (8.5-10.1); Creatinine, Blood 1.72 mg/dL (0.60-1.20); Globulin, Blood 4.1 g/dL (2.2-4.0)
--- NOTE | 2022-07-11 07:14 | NUR ---
NOC SHIFT RN IN ROOM TO CATH PT AT 0700 WHEN Q6 CATH DUE PT REFUSED, THIS WAS PASSED ALONG TO ME IN REPORT
[2022-07-11 08:47] VITALS: BP 120/59; BP 150/59
[2022-07-11 11:32] VITALS: BP 112/64
[2022-07-11 15:43] LABS: Albumin/Globulin Ratio 0.4 (0.8-1.8); Calcium, Blood 8.2 mg/dL (8.5-10.1); Creatinine, Blood 1.47 mg/dL (0.60-1.20); Globulin, Blood 4.6 g/dL (2.2-4.0); Potassium, Blood 4.4 mmol/L (3.5-5.5); Total Protein, Blood 6.6 g/dL (6.4-8.2)
[2022-07-11 16:15] VITALS: BP 115/57
[2022-07-11 16:39] LABS: BASOPHILS ABSOLUTE AUTO 0.02 K/mm3 (0.00-0.23); BASOPHILS PERCENT AUTO 0 % (0-2); EOSINOPHILS PERCENT AUTO 0 % (0-6); Hematocrit 29.2 % (37.0-53.0); Hemoglobin 10.1 g/dL (13.5-17.5); IMMATURE GRAN PERCENT AUTO 1 % (0-1); LYMPHOCYTES ABSOLUTE AUTO 1.79 K/mm3 (0.84-5.20); LYMPHOCYTES PERCENT AUTO 14 % (21-46); MONOCYTES ABSOLUTE AUTO 0.84 K/mm3 (0.16-1.47); MONOCYTES PERCENT AUTO 6 % (4-13); Mean Corpuscular HGB 30.6 pg (26.0-34.0); Mean Corpuscular HGB Conc 34.6 g/dL (31.5-36.5); Mean Corpuscular Volume 89 fL (80-100); Mean Platelet Volume 9.8 fL (9.1-12.4); NEUTROPHILS ABSOLUTE AUTO 10.29 K/mm3 (1.96-9.15); NEUTROPHILS PERCENT AUTO 79 % (41-73); Platelet Count 328 K/mm3 (150-400); RDW Coefficient Variation 17.7 % (11.7-14.2); RDW Standard Deviation 56.8 fL (35.1-46.3); White Blood Cell Count 13.04 K/mm3 (4.00-11.30)
--- NOTE | 2022-07-11 18:36 | NUR ---
PT A/O X4 T/O THE DAY. VSS. PT DENIES INCREASE IN WORK OF BREATHING OR ANY CP. PT REMAINS IN SINUS RHYTHM. PT NOTED TO HAVE DIARRHEA DURING THIS SHIFT NUMEROUS TIMES. STARTED PT ON VANCOMYCIN TODAY. PT ALSO NOTED TO + BLOO CULTURE WITH GRAM POSTIVE COCCI IN ONE OF TWO CULTURES, MD IS MADE AWARE. PT HAS BEEN TREATED T/O THE DAY FOR PAIN WITH MS CONTIN AND ROXICODONE WITH GOOD TO MODERATE PAIN CONTROL. NS INFUSION WAS DC TODAY PT WITH GOOD ORAL INTAKE OF WATER, URINE COLOR IS LIGHTENING T/O THE SHIFT. PT IS REQUIRING STRAIGHT CATH MORE FREQUENTLY THAN Q6 HOURS. NO CHANGE IN NEURO STATUS.
[2022-07-11 20:26] VITALS: BP 119/69
[2022-07-12] VITALS (7 sets, daily range): BP systolic 121–146; BP diastolic 63–89
[2022-07-12 04:50] LABS: BASOPHILS ABSOLUTE AUTO 0.02 K/mm3 (0.00-0.23); BASOPHILS PERCENT AUTO 0 % (0-2); EOSINOPHILS PERCENT AUTO 0 % (0-6); Hematocrit 26.1 % (37.0-53.0); Hemoglobin 9.1 g/dL (13.5-17.5); IMMATURE GRAN ABSOLUTE AUTO 0.16 K/mm3 (0.00-0.10); IMMATURE GRAN PERCENT AUTO 1 % (0-1); LYMPHOCYTES ABSOLUTE AUTO 1.66 K/mm3 (0.84-5.20); LYMPHOCYTES PERCENT AUTO 12 % (21-46); MONOCYTES ABSOLUTE AUTO 0.91 K/mm3 (0.16-1.47); MONOCYTES PERCENT AUTO 7 % (4-13); Mean Corpuscular HGB 30.7 pg (26.0-34.0); Mean Corpuscular HGB Conc 34.9 g/dL (31.5-36.5); Mean Corpuscular Volume 88 fL (80-100); Mean Platelet Volume 9.8 fL (9.1-12.4); NEUTROPHILS ABSOLUTE AUTO 11.17 K/mm3 (1.96-9.15); NEUTROPHILS PERCENT AUTO 80 % (41-73); Platelet Count 268 K/mm3 (150-400); RDW Coefficient Variation 17.3 % (11.7-14.2); RDW Standard Deviation 56.2 fL (35.1-46.3); Red Blood Cell Count 2.96 M/mm3 (4.30-5.90); White Blood Cell Count 13.92 K/mm3 (4.00-11.30)
[2022-07-12 05:25] LABS: Albumin, Blood 1.9 g/dL (3.4-5.0); Albumin/Globulin Ratio 0.5 (0.8-1.8); Bilirubin, Total 1.3 mg/dL (0.1-1.0); Bun/Creatinine Ratio 15.4 (12.0-20.0); Calcium, Blood 8.3 mg/dL (8.5-10.1); Creatinine, Blood 1.23 mg/dL (0.60-1.20); Globulin, Blood 4.2 g/dL (2.2-4.0); Potassium, Blood 4.2 mmol/L (3.5-5.5); Total Protein, Blood 6.1 g/dL (6.4-8.2)
--- NOTE | 2022-07-12 05:42 | NUR ---
PT RESTED WITH CPAP ALL NIGHT, VSS, TMAX 99.1, LAST STRAIGHT CATH AT 0300, NO ISSUES OVER NIGHT
[2022-07-12 16:13] LABS: BASOPHILS ABSOLUTE AUTO 0.03 K/mm3 (0.00-0.23); BASOPHILS PERCENT AUTO 0 % (0-2); EOSINOPHILS PERCENT AUTO 0 % (0-6); Hematocrit 28.2 % (37.0-53.0); Hemoglobin 9.5 g/dL (13.5-17.5); IMMATURE GRAN ABSOLUTE AUTO 0.11 K/mm3 (0.00-0.10); IMMATURE GRAN PERCENT AUTO 1 % (0-1); LYMPHOCYTES ABSOLUTE AUTO 1.44 K/mm3 (0.84-5.20); LYMPHOCYTES PERCENT AUTO 10 % (21-46); MONOCYTES ABSOLUTE AUTO 0.74 K/mm3 (0.16-1.47); MONOCYTES PERCENT AUTO 5 % (4-13); Mean Corpuscular HGB 30.4 pg (26.0-34.0); Mean Corpuscular HGB Conc 33.7 g/dL (31.5-36.5); Mean Corpuscular Volume 90 fL (80-100); Mean Platelet Volume 9.8 fL (9.1-12.4); NEUTROPHILS ABSOLUTE AUTO 11.52 K/mm3 (1.96-9.15); NEUTROPHILS PERCENT AUTO 83 % (41-73); Platelet Count 289 K/mm3 (150-400); RDW Coefficient Variation 17.4 % (11.7-14.2); RDW Standard Deviation 58.1 fL (35.1-46.3); Red Blood Cell Count 3.12 M/mm3 (4.30-5.90); White Blood Cell Count 13.84 K/mm3 (4.00-11.30)
--- NOTE | 2022-07-12 18:20 | NUR ---
THERE ARE NO ACUTE CHANGES DURING THIS SHIFT. NEW IV PLACED OT LFA FOR VANCOMYCIN INFUSION. PT NO LONGER WITH DIARRHEA EPISODES. PT WITH GOOD PO INTAKE T/O THE DAY. VSS. PT UP TO BEDSIDE CHAIR FOR ALL MEALS. REMAINS A/O X4, DOES REPORT HAVING MOMENTS OF GROGGINESS WHICH WAS SAME YESTERDAY.
[2022-07-13] VITALS (8 sets, daily range): BP systolic 103–141; BP diastolic 75–98
--- NOTE | 2022-07-13 00:23 | NUR ---
PT CONVERTED BACK INTO AFIB 120'S-130'S, DR TABOR NOTIFIED, SEE EMAR FOR ORDERS, PT RESTING ASYMPTOMATIC
--- NOTE | 2022-07-13 04:50 | NUR ---
PT COMPLIANT WITH CPAP ALL NIGHT, TREATED FOR PAIN PER EMAR, CONVERTED BACK INTO AFIB 120'S-140'S AROUND 0000, LOPRESSOR IVP GIVEN X 1, PT REMAINS IN AFIB 100'S TO 110'S, LABS PENDING THIS AM, TMAX 99.6, GOOD UO, OTHER VSS
[2022-07-13 05:00] LABS: BASOPHILS ABSOLUTE AUTO 0.03 K/mm3 (0.00-0.23); BASOPHILS PERCENT AUTO 0 % (0-2); EOSINOPHILS PERCENT AUTO 0 % (0-6); Hematocrit 27.6 % (37.0-53.0); Hemoglobin 9.4 g/dL (13.5-17.5); IMMATURE GRAN ABSOLUTE AUTO 0.23 K/mm3 (0.00-0.10); IMMATURE GRAN PERCENT AUTO 2 % (0-1); LYMPHOCYTES ABSOLUTE AUTO 0.92 K/mm3 (0.84-5.20); LYMPHOCYTES PERCENT AUTO 6 % (21-46); MONOCYTES ABSOLUTE AUTO 0.72 K/mm3 (0.16-1.47); MONOCYTES PERCENT AUTO 5 % (4-13); Mean Corpuscular HGB 30.4 pg (26.0-34.0); Mean Corpuscular HGB Conc 34.1 g/dL (31.5-36.5); Mean Corpuscular Volume 89 fL (80-100); Mean Platelet Volume 9.9 fL (9.1-12.4); NEUTROPHILS ABSOLUTE AUTO 13.54 K/mm3 (1.96-9.15); NEUTROPHILS PERCENT AUTO 88 % (41-73); Platelet Count 290 K/mm3 (150-400); RDW Coefficient Variation 17.3 % (11.7-14.2); RDW Standard Deviation 57.1 fL (35.1-46.3); Red Blood Cell Count 3.09 M/mm3 (4.30-5.90); White Blood Cell Count 15.44 K/mm3 (4.00-11.30)
[2022-07-13 05:23] LABS: Albumin, Blood 1.8 g/dL (3.4-5.0); Albumin/Globulin Ratio 0.4 (0.8-1.8); Bilirubin, Total 1.2 mg/dL (0.1-1.0); Bun/Creatinine Ratio 19.6 (12.0-20.0); Calcium, Blood 8.2 mg/dL (8.5-10.1); Creatinine, Blood 0.97 mg/dL (0.60-1.20); Globulin, Blood 4.4 g/dL (2.2-4.0); Potassium, Blood 4.4 mmol/L (3.5-5.5); Total Protein, Blood 6.2 g/dL (6.4-8.2)
--- NOTE | 2022-07-13 17:01 | NUR ---
PT DECLINED BED BATH OR SHOWER FOR THIS RN AND WITH COMMUNICATION ANALYST WITH MULTIPLE ATTEMPTS TO BATHE PT.
--- NOTE | 2022-07-13 18:35 | NUR ---
PT WITH NO ACUTE CHANGES FOR THIS SHIFT. HE HAS REFUSED BATHING. VSS. A/O X4, ALTHOUGH SOMETIMES DOES ANSWER QUESTIONS WITH STRANGE ANSWERS. PT UP TO BEDSIDE CHAIR THROUGHTOUT THE DAY. NS INFUSING AT THIS TIME ON PUMP.
[2022-07-13 22:12] LABS: Vancomycin, Trough 16.8 ug/mL (5.0-10.0)
[2022-07-14] VITALS (7 sets, daily range): BP systolic 110–124; BP diastolic 52–92
[2022-07-14 04:26] LABS: BASOPHILS ABSOLUTE AUTO 0.04 K/mm3 (0.00-0.23); BASOPHILS PERCENT AUTO 0 % (0-2); EOSINOPHILS PERCENT AUTO 0 % (0-6); Hematocrit 26.8 % (37.0-53.0); IMMATURE GRAN ABSOLUTE AUTO 0.11 K/mm3 (0.00-0.10); IMMATURE GRAN PERCENT AUTO 1 % (0-1); LYMPHOCYTES ABSOLUTE AUTO 1.21 K/mm3 (0.84-5.20); LYMPHOCYTES PERCENT AUTO 8 % (21-46); MONOCYTES ABSOLUTE AUTO 0.93 K/mm3 (0.16-1.47); MONOCYTES PERCENT AUTO 6 % (4-13); Mean Corpuscular HGB 30.6 pg (26.0-34.0); Mean Corpuscular HGB Conc 33.6 g/dL (31.5-36.5); Mean Corpuscular Volume 91 fL (80-100); Mean Platelet Volume 10.1 fL (9.1-12.4); NEUTROPHILS ABSOLUTE AUTO 13.29 K/mm3 (1.96-9.15); NEUTROPHILS PERCENT AUTO 85 % (41-73); Platelet Count 291 K/mm3 (150-400); RDW Coefficient Variation 17.4 % (11.7-14.2); RDW Standard Deviation 58.6 fL (35.1-46.3); Red Blood Cell Count 2.94 M/mm3 (4.30-5.90); White Blood Cell Count 15.58 K/mm3 (4.00-11.30)
[2022-07-14 04:45] LABS: Albumin, Blood 1.7 g/dL (3.4-5.0); Albumin/Globulin Ratio 0.4 (0.8-1.8); Bilirubin, Total 1.3 mg/dL (0.1-1.0); Bun/Creatinine Ratio 17.8 (12.0-20.0); Creatinine, Blood 0.84 mg/dL (0.60-1.20); Globulin, Blood 4.1 g/dL (2.2-4.0); Potassium, Blood 4.7 mmol/L (3.5-5.5); Total Protein, Blood 5.8 g/dL (6.4-8.2)
--- NOTE | 2022-07-14 06:27 | NUR ---
SHIFT SUMMARY PT IS A/Ox4 AND COOPERATIVE WITH CARE PROVIDED BY [facility] OF STAFF. ANSWERS QUESTIONS APPROPARIATELY AND ABLE TO MAKE HIS NEEDS KNOWN. NO ACUTE EVENTS OVERNIGHT FOR PT WAS ABLE TO SLEEP. CARDIAC LEARY, REMAINS IN AFIB RHYTHM 100-110'S W/O C/O CP OR PRESSURE T/O THE SHIFT. SBP HAS BEEN STABLE. MAINTAINS SPO2 >90% ON RA-2L PRN. NO C/O SOB OT DYSPNEA T/O THE NIGHT. PT WAS Q6HR STRAIGHT CATH ORDERED PER MD DUE TO NEUROGENIC BLADDER. TOLERATES CATHS WELL WITH YELLOW-JALEN COLORED URINE. VERY SMALL BLOOD CLOTS NOTED IN RECENT CATH. PT STATES THESE CLOTS ARE NORMAL FOR HIM. WILL PASS INFO ON TO DAYSHIFT RN. RECEIVING NS FLUIDS WELL PAIN MANAGED ORDERED VIA EMAR. NO NEW ORDERS AT THIS TIME, WILL REPORT TO DAYSHIFT RN. VSS, ERNESTO T/O THE SHIFT
--- NOTE | 2022-07-14 17:49 | NUR ---
SHIFT SUMMARY PT IS A&OX4, CALLS APPROPRIATELY AND MAKES NEEDS KNOWN. HE IS A 1P SBA W/ A CANE AND HE GOT UP A FEW TIMES THIS SHIFT TO THE CHAIR. HE WAS ON 2L NC W/ SP02 BETWEEN 90-96%. HE WAS TITRATED TO RA AIR AND SP02 REMAINS >92%. HE DENIES ANY SOB AT THIS TIME. ON TELE HE HAS BEEN AFIB 110 S-130 S. THE DRYajaira INCREASED THE FREQUENCY OF HIS 150 MG LOPRESSOR AND GAVE AN ADDITIONAL DOSE OF 50MG LOPRESSOR AT 1100. PT DENIES ANY ANGINA OR CHEST PRESSURE. HE HAS Q6 STRAIGHT CATHS ORDERED DUE TO A NEUROGENIC BLADDER AND TOLERATES WELL. EDUCATION HAS BEEN PROVIDED AND THE PT WAS ABLE TO DEMONSTRATE THE INTERVENTION APPROPRIATELY. HE HAD AND ECHO DONE TODAY. BED IS IN LOW, CALL LIGHT IN REACH, AND BED ALARM ON. SEE NOTES FOR ANY UPDATES.
[2022-07-15 03:39] VITALS: BP 134/69
[2022-07-15 03:49] VITALS: BP 134/72
--- NOTE | 2022-07-15 04:56 | NUR ---
SHIFT SUMMARY A/Ox4 AND COOPERATIVE WITH CARE PROVIDED BY [facility] OF STAFF. ANSWERS QUESTIONS APPROPRIATELY AND ABLE TO MAKE HIS NEEDS KNOWN. AFFECT IS OFTEN VERY WITHDRAWN AND OR NEUTRAL. CARDIAC LEARY, REMAINS IN AFIB WITH RATE OF 100-110'S. NO CP OR PRESSURE REPORTED T/O THE NIGHT. SBP STABLE. RESPIRATORY LEARY, MAINTAINS SPO2 >90% ON RA. USES CPAP AT NIGHT OR HAS 2L VIA NC PRN FOR ANY SOB. STRAIGHT CATH Q6 HR OR PRN ORDERED DUE TO HX OF NEUROGENIC BLADDER. PT TOLERATED PROCEDURES WELL. ABLE TO ABULATE TO BRP OR BSC WITH SBA -1 ASSIST. RECEIVING IVF AND VANCO WELL PAIN HAS BEEN WELL MANAGED ORDERED VIA EMAR. NO NEW ORDERS AT THIS TIME, WILL REPORT TO ONCOMING RN. ERNESTO BHATT T/O THE SHIFT
[2022-07-15 08:41] VITALS: BP 132/92
[2022-07-15] MEDS ORDERED: VISBIOME 112.51 EACH PO (09:20)
[2022-07-15] MEDS ORDERED: BACTRIM DS TAB1 EAC6 PO (09:22)
--- NOTE | 2022-07-15 12:43 | NUR ---
POWERGLIDE REMOVED AND SITE PRESSURE DRESSED. PT EDUCATED ABOUT D/C MEDICATIONS WHICH HE EXPRESSED UNDERSTANDING. HE EXPRESSED UNDERSTANDING ABOUT CLEAN AND STERILE SELF CATHING TECHNIQUES. PT DENIES FURTHER NEEDS
== END 2022-07-15 10:50 | disposition home or self-care (01) | DRG 698 ==
LOC: ER 13:08 → MEDS 22:54 → PCU 23:14
PROVIDERS: Family Medicine; Internal Medicine; Nurse Practitioner Acute Care; Physician Assistant; Student in an Organized Health Care Education/Training Program; Surgery; ADMIT Student in an Organized Health Care Education/Training Program
PROC: 3E03329 Introduction of Other Anti-infective into Peripheral Vein, Percutaneous Approach (ICD-10-PCS; 2022-07-10)
PROC: 5A09357 Assistance with Respiratory Ventilation, Less than 24 Consecutive Hours, Continuous Positive Airway Pressure (ICD-10-PCS; principal; 2022-07-13)
DX: T83.518A Infection and inflammatory reaction due to other urinary catheter, initial encounter (principal); A41.1 Sepsis due to other specified staphylococcus; S06.6XAA Traumatic subarachnoid hemorrhage with loss of consciousness status unknown, initial encounter; S37.011A Minor contusion of right kidney, initial encounter; N39.0 Urinary tract infection, site not specified; F11.20 Opioid dependence, uncomplicated; E87.1 Hypo-osmolality and hyponatremia; N17.9 Acute kidney failure, unspecified; D68.9 Coagulation defect, unspecified; I48.20 Chronic atrial fibrillation, unspecified; N31.9 Neuromuscular dysfunction of bladder, unspecified; I25.10 Atherosclerotic heart disease of native coronary artery without angina pectoris; I10 Essential (primary) hypertension; E78.5 Hyperlipidemia, unspecified; G47.33 Obstructive sleep apnea (adult) (pediatric); E66.01 Morbid (severe) obesity due to excess calories; M54.9 Dorsalgia, unspecified; G89.29 Other chronic pain; E80.6 Other disorders of bilirubin metabolism; R74.01 Elevation of levels of liver transaminase levels; N28.89 Other specified disorders of kidney and ureter; E86.9 Volume depletion, unspecified; B96.20 Unspecified Escherichia coli [E. coli] as the cause of diseases classified elsewhere; B95.4 Other streptococcus as the cause of diseases classified elsewhere; W18.30XA Fall on same level, unspecified, initial encounter; R29.6 Repeated falls; E87.8 Other disorders of electrolyte and fluid balance, not elsewhere classified; Z95.1 Presence of aortocoronary bypass graft; Z95.5 Presence of coronary angioplasty implant and graft; Z98.890 Other specified postprocedural states; Z88.8 Allergy status to other drugs, medicaments and biological substances; Z79.01 Long term (current) use of anticoagulants; Z79.811 Long term (current) use of aromatase inhibitors; Z79.899 Other long term (current) drug therapy; Z79.2 Long term (current) use of antibiotics; Z87.891 Personal history of nicotine dependence; Z68.34 Body mass index [BMI] 34.0-34.9, adult; Y84.6 Urinary catheterization as the cause of abnormal reaction of the patient, or of later complication, without mention of misadventure at the time of the procedure
CPT/HCPCS: 36415; 70450; 71045; 74177; 76705; 80053; 80202; 81001; 82803; 83690; 83735; 83880; 84100; 85025; 87040; 87077; 87086; 87147; 87185; 87186; 93005; 93010; 93306; 94660; 94762; 96365-59; 99285-25; A9270; C1751; G0480; J0696; J2405; J3370; J7030; J7040; J7050; Q9967

== ENCOUNTER 2022-08-30 14:02 | Inpatient (IN) | payer BC ==
[2022-08-30] VITALS (28 sets, daily range): BP systolic 68–160; BP diastolic 43–113
[~2022-08-30] VITALS: Ht 172.7 cm; Wt 108.6 kg
[~2022-08-30 14:02] MED LIST changes: +BACTRIM DS TAB1 EAC6 PO; +Chantix1 MG; +DULOXETINE HCL60 M1 PO; +ELIQUIS5 M3 PO; +METO100ER PO; +MS Contin15 MG PO; +OXYC5 PO; +PREG150 PO; +VISBIOME 112.51 EACH PO
[2022-08-30] MEDS ORDERED: ELIQUIS5 M2 PO (14:15)
[2022-08-30] MEDS ORDERED: FURO40 PO (14:16)
[2022-08-30] MEDS ORDERED: DILT120ERA PO (14:19)
[2022-08-30 14:22] LABS: Base Excess Venous -11.9 mmol/L; Bicarbonate Venous 15.2 mmol/L (24.0-30.0); PCO2 Venous 40.8 mmHg (38-42)
[2022-08-30 14:32] LABS: Hematocrit 37.7 % (37.0-53.0); Mean Corpuscular HGB 28.5 pg (26.0-34.0); Mean Corpuscular HGB Conc 31.8 g/dL (31.5-36.5); Mean Corpuscular Volume 90 fL (80-100); Mean Platelet Volume 12.3 fL (9.1-12.4); NRBC ABSOLUTE 0.14 K/mm3 (0.00-0.02); NRBC Auto 1.1 /100 WBC (0.0-0.2); Platelet Count 261 K/mm3 (150-400); RDW Coefficient Variation 18.8 % (11.7-14.2); RDW Standard Deviation 61.6 fL (35.1-46.3); Red Blood Cell Count 4.21 M/mm3 (4.30-5.90); White Blood Cell Count 12.66 K/mm3 (4.00-11.30)
[2022-08-30 14:44] LABS: Source, Urine Clean Catch
[2022-08-30 14:51] LABS: Appearance, Urine Hazy (Clear); Blood, Urine 1+ (Neg); Color, Urine Amber (P-Yellow); Glucose Qualitative, Urine Neg (Neg); Ketones, Urine Neg (Neg); Leukocyte Esterase, Urine 1+ (Neg); Nitrite, Urine Pos (Neg); Protein, Urine 2+ (Neg); Urobilinogen, Urine 1+ (Normal)
[2022-08-30 15:02] LABS: Albumin, Blood 1.5 g/dL (3.4-5.0); Albumin/Globulin Ratio 0.3 (0.8-1.8); Bilirubin, Total 2.4 mg/dL (0.1-1.0); Bun/Creatinine Ratio 19.5 (12.0-20.0); Calcium, Blood 8.2 mg/dL (8.5-10.1); Creatinine, Blood 3.38 mg/dL (0.60-1.20); Globulin, Blood 4.5 g/dL (2.2-4.0); Potassium, Blood 7.4 mmol/L (3.5-5.5)
[2022-08-30 15:03] LABS: Bilirubin, Urine 1+ (Neg)
[2022-08-30 15:06] LABS: Bacteria Many /hpf; Mucus Light (0-Heavy); Squamous Epithelial Cells Rare /hpf (Few); Transitional Epithelial Cells Rare /hpf (0-Rare)
[2022-08-30 15:16] LABS: BAND PERCENT MAN 53 % (0-8); BASOPHILS PERCENT MAN 0 % (0-2); EOSINOPHILS PERCENT MAN 0 % (0-6); LYMPHOCYTES ABSOLUTE MAN 2.78 K/mm3 (0.84-5.20); LYMPHOCYTES PERCENT MAN 22 % (21-46); METAMYELOCYTE ABSOLUTE MAN 0.12 K/mm3 (0.00-0.00); METAMYELOCYTE PERCENT MAN 1 % (0-0); MONOCYTES ABSOLUTE MAN 0.25 K/mm3 (0.16-1.47); MONOCYTES PERCENT MAN 2 % (4-13); NEUTROPHILS ABSOLUTE MAN 9.49 K/mm3 (1.96-9.15); SEG NEUTROPHILS PERCENT MAN 22 % (41-73); TOTAL CELLS COUNTED 100
[2022-08-30 15:22] LABS: Influenza A, PCR NEGATIVE (NEGATIVE); Influenza B, PCR NEGATIVE (NEGATIVE); Resp Syncytial Virus, PCR NEGATIVE (NEGATIVE); SARS-Cov-2 (COVID-19) PCR, MMC NEGATIVE (NEGATIVE)
[2022-08-30 18:14] LABS: Bun/Creatinine Ratio 20.6 (12.0-20.0); Creatinine, Blood 3.21 mg/dL (0.60-1.20); Potassium, Blood 6.1 mmol/L (3.5-5.5)
--- NOTE | 2022-08-30 18:42 | NUR ---
ICU ADMIT PT ARRIVES TO ICU 12 FROM ER AT 1650. PT IS VERY SLOW TO RESPOND BUT CAN SAY HE IS IN [place]. PT HAS GLAZED LOOK AND IS DOUGLAS IN APPEARANCE. HYPOTENSIVE, NS BOLUS GIVEN. DR. GONCALVES IN UNIT TO SEE PT ON ARRIVAL. LABS REDRAWN AND DR. GONCALVES IS OK WITH POTASSIUM AND LACTIC ACID. MORE LABS TO BE DRAWN AT 1999. URINE DARK JALEN IN COLLADO BAG. AFIB 100-115 ON THE MONITOR. S.O AT BEDSIDE.
[2022-08-30] MEDS ORDERED: CYMBALTA30 M2 PO (19:18)
[2022-08-30] MEDS ORDERED: NORT25 PO (19:22)
[2022-08-30 20:12] LABS: Source, Urine Foley catheter
[2022-08-30 20:20] LABS: Appearance, Urine Cloudy (Clear); Blood, Urine 3+ (Neg); Color, Urine Brown (P-Yellow); Glucose Qualitative, Urine Neg (Neg); Ketones, Urine 1+ (Neg); Leukocyte Esterase, Urine 2+ (Neg); Nitrite, Urine Pos (Neg); Protein, Urine 3+ (Neg); Urobilinogen, Urine 2+ (Normal)
--- NOTE | 2022-08-30 20:27 | NUR ---
ASSUMED CARE AT 1900 PATIENT IS ALERT AND ORIENTED X2. SLOW TO RESPOND, KNOWS SELF AND AND ABLE TO FOLLOW SOME SIMPLE COMMANDS. DIFFICULT TO UNDERSTAND. BECOMING MORE AGITATED PULLING AT LINES AND CORDS. DENIES PAIN AT THIS TIME. 02 SATS 98% ON RA, CPAP WHILE SLEEPING. LS CLEAR TO DIMINISHED, RR 25. HR A.FIB 115, BP HYPOTENSIVE, MAP >60. TEMP COLLADO PATENT AND DRAINING TO GRAVITY TEA COLORED WITH SEDIMENT. NEW UA VIA COLLADO SENT. PATIENT TEMP 95.9 AT START OF SHIFT, WARMING PATIENT. AT BEDSIDE AT START OF SHIFT AND PROVIDED HX AND MED LIST.
[2022-08-30 20:28] LABS: Bilirubin, Urine 2+ (Neg)
[2022-08-30 20:31] LABS: Amorphous Mod (0-Heavy); Bacteria Many /hpf; Renal Epithelial Few /hpf (0-Rare); Squamous Epithelial Cells Rare /hpf (Few); White Blood Cells, Urine 25-50 /hpf (0-5)
[2022-08-30 20:34] LABS: Bun/Creatinine Ratio 21.1 (12.0-20.0); Calcium, Blood 7.6 mg/dL (8.5-10.1); Creatinine, Blood 3.23 mg/dL (0.60-1.20); Potassium, Blood 6.1 mmol/L (3.5-5.5)
[2022-08-30 23:59] LABS: Bun/Creatinine Ratio 22.8 (12.0-20.0); Calcium, Blood 7.7 mg/dL (8.5-10.1); Creatinine, Blood 3.29 mg/dL (0.60-1.20); Potassium, Blood 6.1 mmol/L (3.5-5.5)
[2022-08-31] VITALS (41 sets, daily range): BP systolic 81–170; BP diastolic 0–141
[2022-08-31 00:20] LABS: U Amphetamine Screen Not Detected; U Barbituate Screen Not Detected; U Benzodiazapine Screen Not Detected; U Buprenorphine Screen Not Detected; U Cannabinoids Screen Not Detected; U Cocaine Screen Not Detected; U Methadone Screen Not Detected; U Methamphetamine Screen Not Detected; U Opiates Screen Not Detected; U Oxycodone Screen Not Detected; U Phencyclidine Screen Not Detected; U Propoxyphene Screen Not Detected
[2022-08-31 00:47] LABS: PCO2 Arterial 29.6 mmHg (35-45); PO2 Arterial 68.8 mmHg (80-100); pH Blood Arterial 7.45 (7.35-7.45)
[2022-08-31 03:06] LABS: Hematocrit 37.6 % (37.0-53.0); Hemoglobin 11.8 g/dL (13.5-17.5); Mean Corpuscular HGB 27.7 pg (26.0-34.0); Mean Corpuscular HGB Conc 31.4 g/dL (31.5-36.5); Mean Corpuscular Volume 88 fL (80-100); Mean Platelet Volume 12.5 fL (9.1-12.4); NRBC ABSOLUTE 0.14 K/mm3 (0.00-0.02); NRBC Auto 1.1 /100 WBC (0.0-0.2); Platelet Count 216 K/mm3 (150-400); RDW Standard Deviation 61.2 fL (35.1-46.3); Red Blood Cell Count 4.26 M/mm3 (4.30-5.90); White Blood Cell Count 12.72 K/mm3 (4.00-11.30)
[2022-08-31 03:32] LABS: Magnesium, Blood 2.4 mg/dL (1.6-2.4)
[2022-08-31 03:34] LABS: Albumin, Blood 1.4 g/dL (3.4-5.0); Anion Gap 12 mmol/L (6-16); Blood Urea Nitrogen 72 mg/dL (8-24); Bun/Creatinine Ratio 21.2 (12.0-20.0); CO2, Blood 21 mmol/L (21-32); Calcium, Blood 7.7 mg/dL (8.5-10.1); Chloride, Blood 105 mmol/L (98-108); Creatinine, Blood 3.39 mg/dL (0.60-1.20); Glomerular Filtration Rate 20 (60-); Glucose, Blood 81 mg/dL (70-99); Phosphorus, Blood 5.3 mg/dL (2.5-4.9); Potassium, Blood 6.2 mmol/L (3.5-5.5); Sodium, Blood 138 mmol/L (136-145); Vancomycin, Random 16.7 ug/mL
--- NOTE | 2022-08-31 04:46 | NUR ---
UNABLE TO OBTAIN ACCURATE BLOOD PRESSURE DUE TO PATIENT HAVING INCREASE IN MUSCLE SPASMS. ATTEMPTED MANUAL BUT PATIENT UNABLE TO HOLD STILL. HALDOL GIVEN. DR. Price NOTIFIED.
[2022-08-31 05:08] LABS: CPK Creatine Kinase 52 U/L (39-308)
--- NOTE | 2022-08-31 05:35 | NUR ---
SHIFT SUMMARY PATIENT IS ALERT AND ORIENTED TO SELF ONLY. MEDICATED WITH HALDOL FOR AGITATION. 02 SATS >95% ON RA, PATIENT KEPT PULLING CPAP OFF. LS DIMINISHED. HR A.FIB 70s-100. BP STABLE WHEN ABLE TO GET A READING. CONTINUES TO HAVE MUSCLE SPASMS AND RESTLESS. PATIENT COMPLAINS OF ABDOMINAL PAIN WHEN ABDOMEN IS PALPATED, DISTENDED AND FIRM. TEMP COLLADO PATENT AND DRAINING TO GRAVITY, URINE OUTPUT SIGNIFICANTLY DECREASED THROUGH THE NIGHT. REMIANS TEA COLORED WITH SEDIMENT. DR. Price UPDATED THROUGH THE NIGHT AND AWARE OF LABS, CONSULT FOR DIALYSIS CATH ORDERED.
--- NOTE | 2022-08-31 06:53 | NUR ---
PATIENT WAS EDUCATED ON IGNITION SOURCES AND RISK ON OXYGEN USE AT START OF SHIFT WELL .
--- NOTE | 2022-08-31 07:14 | NUR ---
UPDATED ON PATIENT CONDITION AND INCREASING AGITATION, STATES SHE WILL COME IN THIS AM.
[2022-08-31 08:46] LABS: Albumin, Blood 1.4 g/dL (3.4-5.0); Albumin/Globulin Ratio 0.4 (0.8-1.8); Bilirubin, Total 2.2 mg/dL (0.1-1.0); Bun/Creatinine Ratio 20.5 (12.0-20.0); Calcium, Blood 7.6 mg/dL (8.5-10.1); Creatinine, Blood 3.66 mg/dL (0.60-1.20); Potassium, Blood 6.9 mmol/L (3.5-5.5); Total Protein, Blood 5.4 g/dL (6.4-8.2)
--- NOTE | 2022-08-31 08:53 | NUR ---
AM NOTE... ASSUMED CARE OF PT AT 0700, PT IS AWAKE AND ALERT ORIENTED TO SELF ONLY. HE IS VERY JERKY/SPASMASTIC WITH HIS EXTREMITY/HEAD/MOUTH MOVEMENTS. HIS SKIN IS VERY DUSKY LOOKING. HE IS AFIB IN THE 80'S-100'S. HE IS ON RA WITH O2 SATS >90% L/S CLEAR T/O DIM IN THE BASES. RR IS IN THE 30'S-40'S. THE PT WAS VERY DIAPHORETIC, THIS RN CHECKED HIS CBG WHICH SHOWED CRITIAL LOW AT 31, HE WAS GIVEN 1/2 AMP OF D50, RECHECKED IN 30 MINS WHICH SHOWED 53 ANOTHER 1/2 AMP WAS GIVEN AND D5 W/NS AT 75MLS/HR WAS STARTED PER . BT PRESENT AND HYPOACTIVE, ABD IS VERY DISTENDED AND TENDER TO PALPATION. TEMP COLLADO IS PATENT AND DRAINING SCANT TEA COLORED URINE TO GRAVITY. AT [address] DR[address] WHITE AND DR. GONCALVES AT THE BEDSIDE TO ASSESS THE PT, PLAN IS TO PLACE A TRIALYSIS CATH. WILL CONTINUE TO MONITOR.
--- NOTE | 2022-08-31 09:12 | NUR ---
PT EDUCATION.... PT AND FAMILY EDUCATED RE:IGNITION SOURCES AND RISK OF INJURY WHILE OXYGEN IS IN USE. PT AND FAMILY DENIES SMOKING AND IS CURRENTLY NOT ON ANY OXYGEN. FAMILY VERBALIZED THEIR UNDERSTANDING, PT IS A&O TO SELF ONLY AT THIS TIME.
[2022-08-31 09:31] LABS: International Normalized Ratio 1.48; Prothrombin Time Results 15.2 Sec (9.7-11.5)
--- NOTE | 2022-08-31 17:08 | NUR ---
SHIFT SUMMARY.... PT WAS STARTED ON DIALYSIS AT 1420. STARTING AT APROX 1500 THE PT'S HR WENT FROM AFIB IN THE 70'S-90'S TO AFIB W/RVR IN THE 120'S-150'S. PT CONTINUED TO HAVE CONSTANT MUSCLE JERKING/SHAKING LEADING TO QUESTIONABLE BPs, HOWEVER DURING THIS TIME HIS RECORDED BPs WERE HYPERTENSIVE (SEE VS FLOW SHEET.) ICU PROVIDER AND LAND DEGRADATION ANALYST WERE NOTIFIED. THE PT'S ALSO STATED THAT THE PT TAKES A LARGE AMOUNT OF NARCOTIC PAIN MEDICATION AT HOME AND THAT HE HAD NOT HAD ANY FOR A WEEK, NEW ORDERS WERE GIVEN FOR FENTANYL 25-50MCG Q2 HR PRN. THE PT WAS GIVEN 50MCG WHICH IMPROVED SOME OF HIS FRANTIC JERKING MOVEMENTS AND SEEMED TO HELP HIS ANXEITY BUT DID NOT STOP THE JERKING/SPASMS COMPLETELY. THE PT CONTINUES ON D10 AT 50MLS/HR AND D5NS AT 100MLS/HR LAST CBG WAS 90. PT'S COLLADO IS PATENT AND DRAINING SCANT TEA COLORED URINE TO GRAVITY. TMAX WAS 99.6. HE CONTINUES TO BE A&Ox1 AND NOT FOLLOWING COMMANDS AT THIS TIME. HE CONTINUES TO REACH OUT AND ATTEMPT TO GRAB THINGS OUT OF THE AIR AND APPEARS TO HAVE VISUAL HALLUCINATIONS. SCDs WERE PLACED PER ORDERS. WILL CONTINUE TO MONITOR UNTIL REPORT IS GIVEN TO ONCOMING RN.
--- NOTE | 2022-08-31 18:24 | NUR ---
PT UPDATE.... PT'S BP WAS CHECKED WITH A DOPPLER, BOTH ARMS SHOWED A DOPPLER SBP IN THE 60'S. THIS WAS RECHECKED WITH YOAV BAZZI RN. DR. WHITE NOTIFIED. ORDERS GIVEN TO START LEVOPHED AND GET AN ABG. PT'S UPDATED. WILL CONTINUE TO MONITOR.
[2022-08-31 19:11] LABS: PCO2 Arterial 35.8 mmHg (35-45); PO2 Arterial 58.6 mmHg (80-100); pH Blood Arterial 7.44 (7.35-7.45)
--- NOTE | 2022-08-31 20:15 | NUR ---
PATIENT AWAKE REACHING UP INTO THE AIR AND PICKING AT THINGS THAT I DON'T SEE. MAKES EYE CONTACT WHEN NAME SAID, APPEARS TO RECOGNIZE FAMILY IN ROOM, BUT NOT MAKING CONVERSATION AND UNABLE TO VERBALIZE WHAT HE IS REACHING FOR. PULLING AT CPAP AND OTHER LINES, BILAT WRIST RESTRAINTS CONTINUED. DUE TO CONTINUOUS MOVEMENT AND JERKING VERY DIFFICULT TO OBTAIN BP. ABLE TO GET MANUAL BP BUT VERY FAINT. LEVOPHED 10 MCG INFUSING AND AMIODARONE DRIP STARTED HEART RATE 130'S. PATIENTS FAMILY HOME FOR THE NIGHT.
[2022-09-01] VITALS (47 sets, daily range): BP systolic 56–180; BP diastolic 29–158
--- NOTE | 2022-09-01 00:27 | NUR ---
PATIENT RESTLESS, CONTINUES TO HAVE DIFFICULTY HOLDING STILL. DIAPHORETIC. BLOOD SUGAR STABLE, CONTINUING TO NEED TO MONITOR BP WITH MANUAL BP. LEVOPHED 12 MCG CONTINUES. HEART RATE 114 AMIO DRIP CONTINUES. FENTANYL IV GIVEN FOR PAIN. PATIENT GIVING SLIGHT NOD WHEN ASKED IF HE IS HOT, FAN PLACED TO PATIENT.
[2022-09-01 04:06] LABS: Hematocrit 36.6 % (37.0-53.0); Hemoglobin 11.5 g/dL (13.5-17.5); Mean Corpuscular HGB 27.7 pg (26.0-34.0); Mean Corpuscular HGB Conc 31.4 g/dL (31.5-36.5); Mean Corpuscular Volume 88 fL (80-100); NRBC ABSOLUTE 0.18 K/mm3 (0.00-0.02); NRBC Auto 1.1 /100 WBC (0.0-0.2); Platelet Count 189 K/mm3 (150-400); RDW Coefficient Variation 18.8 % (11.7-14.2); RDW Standard Deviation 60.4 fL (35.1-46.3); Red Blood Cell Count 4.15 M/mm3 (4.30-5.90); White Blood Cell Count 15.78 K/mm3 (4.00-11.30)
[2022-09-01 04:16] LABS: Mean Platelet Volume 13.1 fL (9.1-12.4)
[2022-09-01 04:18] LABS: International Normalized Ratio 1.42; Prothrombin Time Results 14.6 Sec (9.7-11.5)
[2022-09-01 04:25] LABS: Magnesium, Blood 2.3 mg/dL (1.6-2.4)
[2022-09-01 04:26] LABS: Alanine Aminotransfer (ALT/SGP 40 U/L (12-78); Albumin, Blood 1.6 g/dL (3.4-5.0); Albumin/Globulin Ratio 0.4 (0.8-1.8); Alk Phos 168 U/L (50-136); Anion Gap 10 mmol/L (6-16); Aspartate Aminotrans (AST/SGOT 197 U/L (12-37); Bilirubin, Total 2.5 mg/dL (0.1-1.0); Blood Urea Nitrogen 49 mg/dL (8-24); CO2, Blood 24 mmol/L (21-32); Calcium, Blood 7.8 mg/dL (8.5-10.1); Chloride, Blood 102 mmol/L (98-108); Creatinine, Blood 2.72 mg/dL (0.60-1.20); Globulin, Blood 4.1 g/dL (2.2-4.0); Glomerular Filtration Rate 26 (60-); Glucose, Blood 141 mg/dL (70-99); Phosphorus, Blood 5.4 mg/dL (2.5-4.9); Potassium, Blood 5.2 mmol/L (3.5-5.5); Sodium, Blood 136 mmol/L (136-145); Total Protein, Blood 5.7 g/dL (6.4-8.2); Vancomycin, Random 11.8 ug/mL
[2022-09-01 04:41] LABS: BAND PERCENT MAN 14 % (0-8); BASOPHILS PERCENT MAN 0 % (0-2); EOSINOPHILS PERCENT MAN 0 % (0-6); LYMPHOCYTES ABSOLUTE MAN 2.84 K/mm3 (0.84-5.20); LYMPHOCYTES PERCENT MAN 18 % (21-46); MONOCYTES ABSOLUTE MAN 1.57 K/mm3 (0.16-1.47); MONOCYTES PERCENT MAN 10 % (4-13); NEUTROPHILS ABSOLUTE MAN 11.36 K/mm3 (1.96-9.15); SEG NEUTROPHILS PERCENT MAN 58 % (41-73); TOTAL CELLS COUNTED 100
--- NOTE | 2022-09-01 06:46 | NUR ---
SUMMARY PATIENT AWAKE WITH JERKING TYPE MOVEMENTS T/O NIGHT. AT TIMES APPEARS TO NOD YES AND NO AND HAVE PURPOSEFUL MOVEMENTS IN ARMS, MOVING PILLOWS AND BLANKETS. NOT ALWAYS CONSISTENT. TO GET RELIABLE BP DOING MANUAL BP, LEVOPHED 12 MCG CONTINUES. AFIB CONTINUES WITH AMIODARONE 0.5 INFUSING RATE NOW IN 110'S. PATIENT DIAPHORETIC OFF AND ON T/O NIGHT RELIVED WITH FAN. GLUCOSE REMAINING 110-120 WITH D5NS, D10, DEXTROSE IN AMIO AND LEVOPHED. DOCTOR SUSAN AWARE OF AM LABS AND CALCIUM GLUCONATE GIVEN WITH NO CHANGES TO TWITCHING. CPAP WITH 4L BLEED IN IN PLACE T/O NIGHT. PATIENT KEEPING MOUTH OPEN, ORAL CARE WITH SUCTION SWAB DONE FREQUENTLY T/O NIGHT.
--- NOTE | 2022-09-01 07:33 | NUR ---
BEDSIDE REPORT WITH MERCEDEZ MADRIGAL CARE ASSUMED AT 0700, PT CONTINUES TO TWITCH, UNABLE TO OBTAIN ADEQUATE BLOOD PRESSURE, ON LEVO @ 13MCG/HR, AMIO @ 0.5 D5NS @ 100ML/HR AND D10 @ 50ML/HR. PT NODS THAT HE HAS PAIN, NODS THAT IT IS HIS BACK. MEDICATED PER APR. CPAP IN PLACE, SKIN KEY/YELLOW IN APPEARANCE.COLLADO WITH SCANT RETURN DARK YELLOW. PULSES IN EXTREMETIES VERY DIFFICULT TO PALPATE.
--- NOTE | 2022-09-01 08:11 | NUR ---
BP OBTAINED BY DOPPLAR, PT NOW APPEARS TO BE RESTING. LUNGS CLEAR. PULSE OX AND HEART RATE NOT CORRELATING WELL. DOPPLAR PULSES TO FEET OBTAINED, PAS IN PLACE. RHYTHM REMAINS A-FIB. TEMP 99.1
--- NOTE | 2022-09-01 10:37 | NUR ---
TO CT AROUND 0930, PT TOLERATED WELL. BECOMING MORE AWAKE AND ANSWERING QUESTIONS. HE IS STARTING TO FOLLOW COMMANDS, AND DAUGHTER AT THE BEDSIDE. HAS SEEN PATIENT. HE IS OFF THE CPAP, BEEN PLACED ON THE NASAL CANNULA PRIOR TO GOING TO CT SCAN.
--- NOTE | 2022-09-01 14:21 | NUR ---
SINCE RETURN FROM CT, AND DAUGHTER HAVE BEEN IN THE ROOM. HE HAS BEEN WITHOUT RESTRAINTS. THE ASKED FOR HIM TO TAKE SOMETHING TO HELP HIM SLEEP. HE WAS GIVEN HALDOL PER MAR. HE BECAME MORE FIDGETY AND RESTLESS, PULLING AT THE LINES, WIRES AND TUBING. THE AND DAUGHTER JUST LEFT FOR LUNCH AND THE PT HAS BEEN UNABLE TO SETTLE DOWN. HE WAS JUST REPOSITIONED AND HIS WRISTS RESTRAINED TO KEEP LINES AND TUBES INTACT. HE CONTINUES TO STAY WITH HIS MOUTH OPEN, WILL SUCKLE ON A SWAB STICK BRIEFLY, TREATS IT LIKE A CIGARETTE. HASN'T SMOKED FOR 5 DAYS, SAYS HE DOESN'T NEED A PATCH. LEVO IS ON STANDBY AT THIS TIME.
--- NOTE | 2022-09-01 15:44 | NUR ---
Spiritual care visit conducted. Patient is lying in bed and alert but struggles to track with the conversation of speak. Jazzy Nuñez, and dtrGena, are bedside. They talk at length about the kind of man the patient is, the spiritual journey they have all been on and the medical history up to the present. They talk about how hard this hospitalization has been and how the much they are praying and hoping for some positive change and clear direction. I normalize their experience and provide therapeutic listening and prayer. They both respond well and even the patient states a very clear "Amen" at the end of the prayer. I will remain available to patient and family.
[2022-09-01 15:52] LABS: Albumin, Blood 1.3 g/dL (3.4-5.0); Anion Gap 12 mmol/L (6-16); Blood Urea Nitrogen 54 mg/dL (8-24); Bun/Creatinine Ratio 17.6 (12.0-20.0); CO2, Blood 22 mmol/L (21-32); Calcium, Blood 7.4 mg/dL (8.5-10.1); Chloride, Blood 102 mmol/L (98-108); Creatinine, Blood 3.06 mg/dL (0.60-1.20); Glomerular Filtration Rate 23 (60-); Glucose, Blood 167 mg/dL (70-99); Phosphorus, Blood 5.7 mg/dL (2.5-4.9); Potassium, Blood 5.1 mmol/L (3.5-5.5); Sodium, Blood 136 mmol/L (136-145)
--- NOTE | 2022-09-01 19:36 | NUR ---
WILLIAM CONTINUED TO DO WELL OFF THE CPAP FOR THE MAJORITY OF THE AFTERNOON. HE WAS LUCID AND ABLE TO SPEAK IN SOME WORDS. HE WAS OUT OF RESTRAINTS, WAS RE- DIRECTABLE FOR THE MOST PART. HIS BP CONTINUED TO WAX AND WANE AND THE NOREPI- NEPHRINE WAS TITRATED ACCORDINGLY. HIS BRITTA AND DAUGHTER WERE HERE INTERMITTENTLY T/O THE DAY. HE CONTINUED ON THE D5NS @ 10O AND THE D10 @ 50. THE AMIODARONE @ 0.5 FINISHING UP SHORTLY. HIS ABDOMEN REMAINS LARGE AND DIS- TENDED, TENDER TO PALPATION. HIS URINE OUTPUT WAS 75, TEA COLORED. HE CONT. WITH EPISODES OF DIAPHORESIS AND ONLY THE ONE EPISODE OF LOW BLOOD SUGAR. HIS SATS REMAINED DIFFICULT TO OBTAIN T/O THE DAY, WHILE USING THE NC HE REMAINED >95%. ONCE WE MOVED HIM TO THE NEW ROOM ON THE OTHER SIDE OF THE UNIT, HE BEGAN TO BECOME MORE DISORIENTED AND COLOR CONTINUED TO KEY IN COLOR. HE WAS PLACED BACK ON THE CPAP WITH 4L BLEED IN PRIOR TO HANDING OFF TO NOC SHIFT.
--- NOTE | 2022-09-01 20:32 | NUR ---
PATIENT OPENING EYES TO VERBAL STIMULI, FOLLOWING SIMPLE DIRECTIONS. CPAP IN PLACE CHANGED TO V60 AND FIO2 60% PATIENT CONTINUES TO PUSH HIS BOTTOM LIP OUT AND KEEPING MOUTH OPEN EVEN WHEN INSTRUCTED TO CLOSE MOUTH. GLUCOSE 70 SECOND 1/2 AMP D50 GIVEN WITH D10 @50/HR AND D5NS @ 100/HR. DIFFICULTY OBTAINING NIBP DUE TO JERKING, MANUAL BP LAST 84/50 ON LEVOPHED 12 MCG. AMIO DRIP CONTINUES WILL BE DONE HEART RATE 110'S. AND DAUGHTER AT BEDSIDE. [facility] OBTAIN[facility] FOR D5 1/2 NS WITH 2 AMPS BICARB X1L
[2022-09-02] VITALS (25 sets, daily range): BP systolic 84–120; BP diastolic 47–69
[2022-09-02 05:21] LABS: Hematocrit 31.4 % (37.0-53.0); Hemoglobin 10.1 g/dL (13.5-17.5); Mean Corpuscular HGB 27.9 pg (26.0-34.0); Mean Corpuscular HGB Conc 32.2 g/dL (31.5-36.5); Mean Corpuscular Volume 87 fL (80-100); Mean Platelet Volume 12.8 fL (9.1-12.4); NRBC ABSOLUTE 0.11 K/mm3 (0.00-0.02); NRBC Auto 0.6 /100 WBC (0.0-0.2); Platelet Count 132 K/mm3 (150-400); RDW Coefficient Variation 18.9 % (11.7-14.2); RDW Standard Deviation 59.7 fL (35.1-46.3); Red Blood Cell Count 3.62 M/mm3 (4.30-5.90); White Blood Cell Count 19.09 K/mm3 (4.00-11.30)
[2022-09-02 05:31] LABS: BAND PERCENT MAN 5 % (0-8); BASOPHILS PERCENT MAN 0 % (0-2); EOSINOPHILS ABSOLUTE MAN 0.19 K/mm3 (0.00-0.68); EOSINOPHILS PERCENT MAN 1 % (0-6); LYMPHOCYTES ABSOLUTE MAN 2.48 K/mm3 (0.84-5.20); LYMPHOCYTES PERCENT MAN 13 % (21-46); MONOCYTES ABSOLUTE MAN 1.14 K/mm3 (0.16-1.47); MONOCYTES PERCENT MAN 6 % (4-13); NEUTROPHILS ABSOLUTE MAN 15.27 K/mm3 (1.96-9.15); SEG NEUTROPHILS PERCENT MAN 75 % (41-73); TOTAL CELLS COUNTED 100
[2022-09-02 05:52] LABS: Albumin, Blood 1.3 g/dL (3.4-5.0); Albumin/Globulin Ratio 0.3 (0.8-1.8); Bilirubin, Total 2.5 mg/dL (0.1-1.0); Calcium, Blood 7.7 mg/dL (8.5-10.1); Creatinine, Blood 3.39 mg/dL (0.60-1.20); Globulin, Blood 3.8 g/dL (2.2-4.0); Magnesium, Blood 2.2 mg/dL (1.6-2.4); Phosphorus, Blood 5.8 mg/dL (2.5-4.9); Potassium, Blood 5.2 mmol/L (3.5-5.5); Total Protein, Blood 5.1 g/dL (6.4-8.2)
--- NOTE | 2022-09-02 06:51 | NUR ---
SUMMARY PATIENT WITH CPAP IN PLACE T/O NIGHT WITH SHORT BREAKS ON 4L/NC FOR ORAL CARE SEVERAL TIMES DURING THE NIGHT. PATIENT KEEPING MOUTH OPEN, DURING ORAL CARE IS ABLE TO CLOSE HIS MOUTH, BUT DOESN'T KEEP IT CLOSED. ONLY SLIGHT GAG WITH DEEP ORAL SUCTION. PATIENT CONTINUES TO HAVE TWITCHING AND JERKING MAKING IT DIFFICULT TO OBTAIN ACCURATE BP. MANUAL BP DONE T/O NIGHT. LEVOPHED 12 MCG CONTINUES. FREQUENT CHECK OF GLUCOSE DUE TO HYPOGLYCEMIA. D10 AND D5NS CONTINUE
[2022-09-02 12:06] LABS: PCO2 Arterial 38.4 mmHg (35-45); PO2 Arterial 100 mmHg (80-100); pH Blood Arterial 7.43 (7.35-7.45)
--- NOTE | 2022-09-02 12:40 | NUR ---
Patient is lying in bed and receiving dialysis. Pt's spouse, Jazzy and dtr Gena are bedside. Jazzy tells me that the patient has been in dire situations before and so they have talked end of life decision making and that the patient wishes are to try all aggressive treatments when it is reasonable and has a strong possiblity of recovery. Patient does not wish to be sustained by life support very long and if the "try" does not produce a good outcome in a short amount of time he wishes to "be let go," according to Jazzy. Jazzy is a pharmacist and understands and appreciates the medical language and any sort of risk verses benefit discussion. I provide therapeutic listening and prayer with the family and will continue to remain available to patient and family. They voice their appreciation show signs of greater peace.
--- NOTE | 2022-09-02 13:10 | NUR ---
PT ON CPAP. THIS AM SPOKE WITH DR. WHITE ABOUT DIFFICULTY GETTING BP INCLUDING MANUAL/DOPPLER. DR. WHITE PLACED A-LINE TO R GROIN. ABG WAS DRAWN THIS AFTERNOON D/T SPO2 READING IN 50'S TO 70'S. O2 ON ABG WAS GOOD. DIALYSIS WAS STARTED ON PT THIS AM AND FINISHING NOW. PT WILL BRIEFLY MAKE EYE CONTACT WHEN YOU SAY HIS NAME. TWITCHING MOVEMENTS T/O WHICH ARE WORSE WITH STIMULATION. DURING DIALYSIS HR UP TO 130'S-160'S AFIB, AMIODORONE BOLUS GIVEN AND GTT STARTED. REMAINS ON LEVOPHED GTT, D5NS, AND D10. POWERGLIDE PLACED FOR MORE IV ACCESS. AT BEDSIDE UPDATED.
--- NOTE | 2022-09-02 13:38 | NUR ---
IGNITION RISK: PT MINIMALLY RESPONSIVE. EDUCATED ABOUT RISK OF IGNITION WITH O2 IN THE ROOM. NO SOURCE OF IGNITION IN PT BELONGINGS.
--- NOTE | 2022-09-02 17:23 | NUR ---
SUMMARY PT BIPAP DEPENDENT TODAY. FIO2 UP TO 80% FROM 50%. A-LINE PLACED THIS AM D/T DIFFICULTY GETTING ACCURATE MANUAL BP. LEVOPHED DOWN TO 10MCG. AMIODORONE GTT STARTED FOR AFIB 130'S-160'S. PT MUMBLES BUT CANNOT UNDERSTAND ANY WORDS. DOESN'T FOLLOW COMMANDS. CONSTANTLY TWITCHY/JERKY MOVEMENTS OF EXTREMITIES. LITTLE UO BUT PT DID GET DIALYSIS TODAY WITH 2000ML FLUID REMOVED. KEEPING PT IN SOFT WRIST RESTRAINTS HE WILL REACH UP FOR TUBES/LINES WHEN UNRESTRAINED WHILE REPOSITIONING.
--- NOTE | 2022-09-02 21:58 | NUR ---
PATIENT WITH CPAP 16 FIO2 70% IN PLACE. DIFFICULT TO OBTAIN BIOX READING DUE TO POOR PERFUSION. LEVOPHED 10 MCG FOR HYPOTENSION ART LINE IN PLACE TO RIGHT GROIN WITH GOOD WAVEFORM. CONTINUES TO HAVE TWITCHING AND JERKING MOVEMENTS, NOT FOLLOWING DIRECTIONS, BELLE PULLING ON LINES AND CORDS WHEN OUT OF RESTRAINTS. AMIODARONE 0.5 CONTINUES HEART RATE 110-120. PATIENT KEEPING MOUTH OPEN UNLESS DOING ORAL CARE, MOUTH DRY AND ABLE TO SUCTION SMALL AMT OF CLEAR SECRETIONS FROM BACK OF THROAT WITH ORAL CARE, NO GAG WITH DEEP ORAL SUCTION.
[2022-09-03] VITALS (16 sets, daily range): BP systolic 90–1010; BP diastolic 53–72
--- NOTE | 2022-09-03 01:24 | NUR ---
DURING ORAL CARE DEEP ORAL SUCTION HAD A SMALL AMT OF DARK BILE IN SUCTION. DOCTOR CHRISTOPHER NOTIFIED AND IRIS TURPIN NG TUBE ORDERED AND PLACED TO LIS, SUCTIONING 300 CC OF DARK BROWN BILE AFTER PLACING TUBE TO RIGHT NARE. PATIENT ON 10L/NC PLACED IN MOUTH AT THIS TIME.
--- NOTE | 2022-09-03 04:58 | NUR ---
WHILE DOING ORAL CARE, REMOVED QUARTER SIZE THICK STICKY BROWN MUCUS CAST FORM ROOF OF MOUTH. NOW HAVING BLOODY ORAL SECRETIONS. UPPER AIRWAY CONTINUES TO SOUND WET. STRONG MOIST COUGH, BUT NOT CLEARING, ATTEMPT DEEP ORAL SUCTION OBTAINED SMALL AMT OF BILE FROM BACK OF THROAT. NG REMAINS IN PLACE TO LIS DRAINING LARGE AMT OF DARK BROWN BILE.
[2022-09-03 05:11] LABS: Albumin, Blood 1.3 g/dL (3.4-5.0); Albumin/Globulin Ratio 0.3 (0.8-1.8); Bilirubin, Total 3.1 mg/dL (0.1-1.0); Bun/Creatinine Ratio 15.2 (12.0-20.0); Calcium, Blood 8.2 mg/dL (8.5-10.1); Creatinine, Blood 2.82 mg/dL (0.60-1.20); Globulin, Blood 3.8 g/dL (2.2-4.0); Phosphorus, Blood 5.3 mg/dL (2.5-4.9); Potassium, Blood 4.9 mmol/L (3.5-5.5); Total Protein, Blood 5.1 g/dL (6.4-8.2)
--- NOTE | 2022-09-03 06:28 | NUR ---
SUMMARY PATIENT CONTINUES TO OPEN HIS EYES AND APPEARS TO MAKE EYE CONTACT, BUT NOT FOLLOWING DIRECTIONS. HOLDING MOUTH OPEN EXCEPT WHILE DOING ORAL CARE. MOVING ALL EXTREMITIES, REACHING AND PULLING AT LINES WHEN OUT OF RESTRAINTS. NG TO RIGHT NARE CONTINUES TO DRAIN LARGE AMTS OF DARK BROWN/BLACK BILE. DURING LAST TWO ORAL CARE PATIENT HAD BLOODY ORAL SECRETIONS. ART LINE TO RIGHT GROIN IN PLACE WITH GOOD WAVEFORM, USING SAFESET FOR LAB DRAWS. LEVOPHED 8 MCG FOR HYPOTENSION. AMIODARONE 0.5 CONTINUES. BLOOD GLUCOSE CONTINUES TO BE IN THE LOW 100'S WITH D10 AT 50/HR AND D5NS 100/HR. PATIENT APPEARS MORE JAUNDICE THIS MORNING. ON 8L/NC IN HIS MOUTH DUE TO MOUTH BREATHING. BIOX 88-93% WHEN ABLE TO GET READING. TRIALYSIS CATH TO RIGHT IJ.
[2022-09-03 06:46] LABS: Hematocrit 30.6 % (37.0-53.0); Mean Corpuscular HGB Conc 32.7 g/dL (31.5-36.5); Mean Corpuscular Volume 86 fL (80-100); NRBC ABSOLUTE 0.12 K/mm3 (0.00-0.02); NRBC Auto 0.7 /100 WBC (0.0-0.2); Platelet Count 96 K/mm3 (150-400); RDW Coefficient Variation 18.7 % (11.7-14.2); RDW Standard Deviation 58.7 fL (35.1-46.3); Red Blood Cell Count 3.57 M/mm3 (4.30-5.90); White Blood Cell Count 18.46 K/mm3 (4.00-11.30)
[2022-09-03 06:51] LABS: Mean Platelet Volume 13.1 fL (9.1-12.4)
--- NOTE | 2022-09-03 11:42 | NUR ---
SPOKE WITH DR. STALLWORTH THIS AM ABOUT PT NOT HAVING A GAG AND UNABLE TO PROTECT HIS AIRWAY WITH COPIOUS AMT OF BROWN FLUID BEING SUCTIONED FROM NG TUBE. DR. STALLWORTH CAME IN AND SPOKE WITH THE AT LENGTHS ABOUT PLAN OF CARE. DECIDED IT WOULD BE BEST TO INTUBATE PT BEFORE DIALYSIS TODAY. SEDATED WITH PROPOFOL AND VERSED FROM RSI KIT. PT NOW RESTING ON VENT WITHOUT SIGNS OF DISTRESS. ON LEVOPHED GTT AND VASOPRESSIN STARTED THIS AM. A-LINE TO R GROIN ZEROED WITH GOOD PLETH. STILL HAVING DIFFICULTY GETTING AN ACCURATE SPO2 READING. RT WILL GET ABG SOON. PALLIATIVE AND SPIRITUAL CARE HAVE BEEN IN TO SUPPORT .
[2022-09-03 11:57] LABS: PCO2 Arterial 45.7 mmHg (35-45); PO2 Arterial 115 mmHg (80-100)
--- NOTE | 2022-09-03 13:50 | NUR ---
Several spiritual care visit conducted today. Jazzy, is tearful at times today and states that she feels the weight of his decline. She says that this has been the "scariest day so far." She remains hopeful but even that is challenging. We talk about the positive things we know about his condition and the possibilites of gains due to being intubated. Jazzy has great trust in the physicians and will lean into the direction as they go along. She has solid friend and family support even though they are fairly new to the area. She has a strong [place]rist[place] adonis that she holds on to for inspiration and hope. I provide therapeutic listening and prayer. Jazzy responds well and shows signs of being comforted.
[2022-09-03 15:11] LABS: HBSAG SCREEN Negative (Negative); HCV AB Non Reactive (Non Reactive); HEP A AB, IGM Negative (Negative); HEP B CORE AB, IGM Negative (Negative)
--- NOTE | 2022-09-03 17:56 | NUR ---
SUMMARY PT INTUBATED AND SEDATED WITH PROPOFOL. INTUBATED AT 1050 AFTER HE COULD NOT PROTECT AIRWAY. HAD DIALYSIS TODAY. ON LEVOPHED AND VASOPRESSIN. AMIODORONE STILL RUNNING PER DR. STALLWORTH. DURING DIALYSIS HR GOT UP TO 130'S-150'S BUT NOW DOWN TO 100-110. DID NOT MAKE URINE TODAY BUT DIALYSIS DID REMOVE 2600ML. A-LINE STILL HAS GOOD PLETH. ECHO WAS ORDERED BUT WON'T BE DONE UNTIL TOMORROW, DR. STALLWORTH NOTIFIED. GOT 500ML OF BROWN LIQUID OUT OF NG TUBE IN THE AM AND NOW HAS STOPPED. AT BEDSIDE. NO SIGN OF DISTRESS.
--- NOTE | 2022-09-03 18:08 | NUR ---
IGNITION RISK: NO SOURCE OF IGNITION IN PT BELONGINGS PER . EDUCATED ABOUT RISK OF SMOKING, VAPING, OR OPEN FLAME IN ROOM WITH OXYGEN. VERBALIZES UNDERSTANDING.
--- NOTE | 2022-09-03 18:31 | NUR ---
Review of pt with and review of his needs. wants full treatment within reason. If he declines further she understands he is suffering and will adjust her plan. Chaplian here to see her and her fiend is takeing her out to lunch. Will continue to follow for support and decisions.
--- NOTE | 2022-09-03 22:23 | NUR ---
ASSUMED CARE AT 1900 PT LAYING IN BED INTUBATED AND SEDATED AT SHIFT CHANGE; PT AT BEDSIDE AND APPROPRIATE; SHE LEFT SHORTLY AFTER REPORT WAS GIVEN. PT SEDATED WITH PROPOFOL INFUSING AT 15MCG/KG/MIN; PT ATTEMPTED TO OPEN EYES ONCE WHEN ASKED BUT DID NOT CONT TO ATTEMPT; DID NOT FOLLOW ANY OTHER DIRECTIONS. VENT SETTINGS AC/VC 16/450/5/80%; SCANT AMOUNT OF ETT SECREATIONS. TEMP 99.5. AFIB NOTED WITH RATE 80-100'S; AMIODERONE INFUSING AT 0.5MG/HR. SBP 90-100'S; MAP 65-70'S; LEVOPHED INFUSING AT 14MCG/MIN; VASOPRESSIN INFUSING AT 0.04UNITS/MIN; ART LINE TO RT GROIN NOTED; ART LINE ZEROED DURING ASSESSMENT AND TRANSDUCER REPOSITIONED; DRESSING OOZING SLIGHTLY. ABD MODERATE TO SEVERLY DISTENDED AND FIRM; NG TO LIS. COLLADO INPLACE WITH VERY LITTLE OUTPUT; TRIALYSIS CATH TO RIJ; DRESSING C/D/I. MOTTLING NOTED TO BILATERAL FEET. PICC TO RUE NOTED; PLAN TO CHANGE DRESSING D/T BLOOD OOZING; POWERGLIDE TO LUE DRESSING TO BE CHANGED ALSO, DRESSING EDGES COMING UP. D5W INFUSING AT 75ML/HR; D10 INFUSING AT 50ML/HR. SEE SHIFT ASSESSMENT FOR FULL ASSESSMENT. DUE TO PT BEING INTUBATED AND SEDATED, EDUCATION REGARDING FIRE IGNITION NOT APPROPRIATE AT THIS TIME. WILL RE-EVALUATE WHEN PT IS EXTUBATED.
--- NOTE | 2022-09-04 01:03 | NUR ---
UPDATE ATTEMPTED TO TITRATE PROPOFOL DOWN TO 10MCG/KG/MIN AND PT STARTED TO NOT TOLERATE THE VENT, BECAME RESTLESS, AND RR INCREASED; PROPOFOL TITRATED BACK UP TO 15MCG/KG/MIN. PICC LINE, POWERGLIDE, AND ART LINE DRESSINGS ALL CHANGED. CHG BATH COMPLETE.
[2022-09-04 04:32] LABS: Hemoglobin 7.9 g/dL (13.5-17.5); Mean Corpuscular HGB 28.3 pg (26.0-34.0); Mean Corpuscular HGB Conc 31.6 g/dL (31.5-36.5); Mean Corpuscular Volume 90 fL (80-100); NRBC ABSOLUTE 0.07 K/mm3 (0.00-0.02); NRBC Auto 0.5 /100 WBC (0.0-0.2); Platelet Count 61 K/mm3 (150-400); RDW Coefficient Variation 18.9 % (11.7-14.2); RDW Standard Deviation 62.7 fL (35.1-46.3); Red Blood Cell Count 2.79 M/mm3 (4.30-5.90)
--- NOTE | 2022-09-04 05:38 | NUR ---
END OF SHIFT SUMMARY NO ACUTE EVENTS OVERNIGHT. CONT TO BE SEDATED WITH PROPOFOL INFUSING AT 15MCG/KG/MIN; WILL SPONTANIOUSLY MOVE HEAD AND REACT TO PAINFUL STIMULI BUT CONT TO NOT FOLLOW DIRECTIONS. PT CONT TO BE INTUBATED AND PLACED ON SPONT AT 0530, SETTINGS SPONT PEEP 5, FIO2 35%, Vt 700'S, RR 20'S. MAX TEMP 100.0. HR 80-110'S; AMIODERONE INFUSING AT 0.5MG/HR. SBP 90-100; MAP 60-75; LEVOPHED TITRATED UP TO 18MCG/MIN; VASOPRESSIN INFUSING AT 0.04MCG/MIN; ART LINE TO RIGHT GROIN PATENT. OG TO LIS WITH NO OUTPUT THIS SHIFT. COLLADO IN PLACE WITH VERY LITTLE URINE OUTPUT, 25ML OUT. PICC TO RUE, POWERGLIDE TO LUE, AND TRIALYSIS CATH TO RIJ ALL PATENT. D10 INFUSING AT 50ML/HR; D5 INFUSING AT 75ML/HR. WILL REPORT TO AM RN WHEN AVAILABLE.
[2022-09-04 05:52] LABS: Albumin, Blood 1.2 g/dL (3.4-5.0); Albumin/Globulin Ratio 0.4 (0.8-1.8); Bilirubin, Total 3.2 mg/dL (0.1-1.0); Bun/Creatinine Ratio 14.7 (12.0-20.0); Calcium, Blood 7.7 mg/dL (8.5-10.1); Creatinine, Blood 2.66 mg/dL (0.60-1.20); Globulin, Blood 3.4 g/dL (2.2-4.0); Phosphorus, Blood 4.1 mg/dL (2.5-4.9); Potassium, Blood 4.2 mmol/L (3.5-5.5); Total Protein, Blood 4.6 g/dL (6.4-8.2)
[2022-09-04 06:50] LABS: BAND PERCENT MAN 3 % (0-8); BASOPHILS PERCENT MAN 0 % (0-2); EOSINOPHILS PERCENT MAN 0 % (0-6); LYMPHOCYTES % ATYPICAL MANUAL 1 % (0-0); LYMPHOCYTES ABSOLUTE MAN 2.01 K/mm3 (0.84-5.20); LYMPHOCYTES PERCENT MAN 12 % (21-46); METAMYELOCYTE ABSOLUTE MAN 0.15 K/mm3 (0.00-0.00); METAMYELOCYTE PERCENT MAN 1 % (0-0); MONOCYTES ABSOLUTE MAN 0.93 K/mm3 (0.16-1.47); MONOCYTES PERCENT MAN 6 % (4-13); SEG NEUTROPHILS PERCENT MAN 77 % (41-73); TOTAL CELLS COUNTED 100
--- NOTE | 2022-09-04 08:34 | NUR ---
ASSUMED CARE BEDSIDE REPORT FROM SOHA NEWSOME AT 0700. PT INTUBATED AND SEDATED. VENT SETTINGS SPONT 10/5/40%. LUNGS CLEAR. SMALL AMOUNT OF PINK/BROWN SECRETIONS FROM ETT. PROPOFOL GTT FOR SEDATION AND FENTANYL PRN FOR PAIN. PT GRIMACES c ORAL CARE AND PALPATION. DOES NOT FOLLOW COMMANDS OR WITHDRAW EXT FROM PAIN. OPENS EYES SPONT, DOES NOT MAKE EYE CONTACT OR TRACK STAFF. NO PURPOSEFUL MOVEMENTS, RESTRAINTS REMOVED. AFIB ON MONITOR, RATE 90'S. AMIODARONE GTT INFUSING. LEVO AND VASO GTT FOR MAP>65. MAP TRENDING DOWN THIS AM, DR STALLWORTH NOTIFIED. 1L NS BOLUS GIVEN c INCREASE IN MAP. ART LINE TO RIGHT GROIN, FLUSHED AND ZERO'D. DRESSING C/D/I. ANASCARA, MOTTLING TO BLE. NGT TO RIGHT NARE, LIS, MAROON/BROWN EMESIS OUT. ABD DISTENDED, FIRM, TENDER TO PALPATION, HYPOACTIVE BT. COLLADO PATENT, OLIURIC. PICC TO STEVEN, POWERGLIDE TO JHONNY, TRIALYSIS CATH TO RIJ, ALL DRESSINGS C/D/I, LINES c POSITIVE BLOOD RETURN AND FLUSHED. SCD'S IN PLACE. D/T INTUBATION AND SEDATION, FIRE EDUCATION NOT PROVIDED AT THIS TIME, WILL CONTINUE TO ASSESS AND ADDRESS NEEDED. WILL CONTINUE TO MONITOR.
[2022-09-04 10:09] LABS: International Normalized Ratio 1.32; Prothrombin Time Results 13.6 Sec (9.7-11.5)
--- NOTE | 2022-09-04 10:37 | NUR ---
Spiritual care visit conducted. I sat with Jazzy and discussed patient's status and how she was coping with having her 's condition. She talks about her adonis, the music that inspires her and the friends and family that will be coming today to support her. I provide therapeutic listening and bedside prayer. Jazzy responded well and showed signs of reduced stress.
--- NOTE | 2022-09-04 16:23 | NUR ---
Second spiritual care visit today. Jazzy is sitting bedside and is tearful. I provide encouragement and prayer. She voices appreciation.
--- NOTE | 2022-09-04 17:46 | NUR ---
SHIFT SUMMARY PT REMAINS INTUBATED AND SEDATED. VENT SETTINGS SPONT 10/5/30%, TV 650-700ML, RATE 20'S. LUNGS CLEAR. SCANT MAROON SECRETIONS FROM ETT, MODERATE AMOUNT MAROON ORAL SECRETIONS. PROPOFOL CONTINUES AT 15 MCG/KG/MIN, WHEN DECREASED, PT OPENS EYES SPONT, DOES NOT MAKE EYE CONTACT, LOOKS FEARFUL, DOES NOT FOLLOW COMMANDS. LEVO, VASO, AND ELISABET GTT FOR MAP>65. AMIO GTT FOR RATE CONTROL, AFIB, RATE 80'S. MOTTLING TO BLE, ANASCARSA. OLIURIC, 10 ML OUT THIS SHIFT. DID NOT GET DIALYSIS THIS SHIFT. ABD CONTINUES TO BE FIRM, DISTENDED, TENDER. HYPOACTIVE BT. OGT c RED EMESIS OUT, 25 ML THIS SHIFT. TO LIS. WILL CONTINUE TO MONITOR UNTIL REPORT TO ONCOMING NURSE.
--- NOTE | 2022-09-04 20:00 | NUR ---
ASSUMED CARE OF PT AT 1900. REPORT RECEIVED AT BEDSIDE. DR OVALLES COMES TO ROOM DURING REPORT. HE SPEAKS WITH PT'S . DISCUSSES NUTRITIONAL CONCERNS FOR THIS PT THAT MAY BE ADDRESSED IN AM. PT PRESENTS IN BED ON SPONTANEOUS VENT. 12/04 WITH FIO2 35 PERCENT. HAVE SUCTIONED PT PER ETT WITH RETURN OF CLEAR SECRETIONS. PT DOES OPEN EYES WITHOUT PURPOSEFUL MOVEMENT. DOES NOT TRACK. NGT PRESENT TO LIWS. DAY[place] COLOR SECRETIONS. JALEN URINE IN VERY SMALL QUANTITY. BOWEL TONES HEARD IN RIGHT LOWER ABDOMEN. HYPO IN UPPER QUADRANTS. PROPOFOL AT 15 MCG'S/KG/MIN. ELISABET AT 100 MCG'S, LEVOPHED AT 20 MCG'S, VASOPRESSIN AT O.04 UNITS. THIS WITH GOAL OF MAP > 65. BLOOD PRESSURES PER ART LINE. PT'S FAMILY LEAVE JUST AFTER BEDSIDE REPORT. WILL REVIEW CHART AND PLAN OF CARE FOR THIS PT. PT ON OXYGEN THERAPY WITHOUT ANY IGNITION SOURCES PRESENT.
[2022-09-05 05:11] LABS: Mean Corpuscular HGB Conc 28.4 g/dL (31.5-36.5); NRBC ABSOLUTE 0.17 K/mm3 (0.00-0.02); NRBC Auto 0.6 /100 WBC (0.0-0.2); Platelet Count 56 K/mm3 (150-400); RDW Coefficient Variation 19.3 % (11.7-14.2); RDW Standard Deviation 69.5 fL (35.1-46.3); Red Blood Cell Count 1.57 M/mm3 (4.30-5.90); White Blood Cell Count 28.98 K/mm3 (4.00-11.30)
[2022-09-05 05:28] LABS: Mean Corpuscular Volume 99 fL (80-100); Mean Platelet Volume 13.3 fL (9.1-12.4)
[2022-09-05 05:31] LABS: Hemoglobin 4.4 g/dL (13.5-17.5)
[2022-09-05 05:32] LABS: Hematocrit 15.5 % (37.0-53.0)
[2022-09-05 05:54] LABS: BAND PERCENT MAN 3 % (0-8); BASOPHILS PERCENT MAN 0 % (0-2); EOSINOPHILS PERCENT MAN 0 % (0-6); LYMPHOCYTES ABSOLUTE MAN 2.89 K/mm3 (0.84-5.20); LYMPHOCYTES PERCENT MAN 10 % (21-46); MONOCYTES ABSOLUTE MAN 2.02 K/mm3 (0.16-1.47); MONOCYTES PERCENT MAN 7 % (4-13); NEUTROPHILS ABSOLUTE MAN 24.05 K/mm3 (1.96-9.15); SEG NEUTROPHILS PERCENT MAN 80 % (41-73); TOTAL CELLS COUNTED 100
--- NOTE | 2022-09-05 06:12 | NUR ---
CALL PLACED TO PT'S . MESSAGE LEFT. PT'S HGB DROPS TO 4.4 THIS AM. DOES HAVE SOME DRAINAGE FROM NGT MAROON COLORED. CALL MADE TO DR STALLWORTH. ORDER RECIEVED FOR 3 UNITS PRBC'S. DID ALSO CALL DR DAVIS WITH UPDATE. WILL HAVE PRESSORS CONCENTRATED TO DECREASE FLUID INTAKE. PT HAS MINIMAL OUTPUT FROM COLLADO CATHETER. CALL ALSO PLACED TO JOHNSON PT'S DAUGHTER. MESSAGE LEFT TO RETURN CALL. WILL CONTINUE TO MONITOR PT, AND WILL REPORT OFF TO ONCOMING RN.
[2022-09-05 06:29] LABS: Albumin, Blood 1.4 g/dL (3.4-5.0); Albumin/Globulin Ratio 0.5 (0.8-1.8); Bilirubin, Total 3.4 mg/dL (0.1-1.0); Bun/Creatinine Ratio 13.9 (12.0-20.0); Calcium, Blood 7.7 mg/dL (8.5-10.1); Creatinine, Blood 2.95 mg/dL (0.60-1.20); Globulin, Blood 2.6 g/dL (2.2-4.0); Phosphorus, Blood 5.8 mg/dL (2.5-4.9); Potassium, Blood 5.2 mmol/L (3.5-5.5)
[2022-09-05 06:47] LABS: PCO2 Arterial 24.8 mmHg (35-45)
[2022-09-05 06:49] LABS: pH Blood Arterial 6.95 (7.35-7.45)
--- NOTE | 2022-09-05 07:09 | NUR ---
SPOKE WITH PT'S , BRITTA, EXPLAINED THAT PT'S CONDITION HAS TURNED WORSE THIS MORNING AND THAT SHE WOULD MAY WANT TO COME IN EARLY TO SEE PT. SPOKE SEVERAL TIMES WITH DR STALLWORTH CONCERNING ABG VALUES BEING CRITICAL. ORDERS RECEIVED. PUPILS OF PT BECOMING VERY SLUGGISH. HAD PLACED PROPOFOL ON HOLD AT APPROX 0530 THIS MORNING WITHOUT ANY RESPONSES FROM PT. COLOR BECOMING MORE ASHEN/GRAYISH.
[2022-09-05 07:11] VITALS: BP 129/50
[2022-09-05 07:32] VITALS: BP 132/47
--- NOTE | 2022-09-05 08:27 | NUR ---
ASSUMED CARE BEDSIDE REPORT FROM PRASHANTH NEWSOME AT 0700. PT INTUBATED, VENT SETTINGS SPONT 10/5/80%. TV 550-650 ML, RATE 25-30. LUNGS COARSE THROUGHOUT, WORSE ON LEFT SIDE. PT UNRESPONSIVE, NO SEDATION. PUPILS 4 MM, SLUGGISH, YELLOW SCELARA. NO COUGH/GAG/SWALLOW REFLEX. AFIB c PVCS ON MONITOR, RATE 60-70'S. AMIODARONE PLACED ON STANDBY D/T RATE. LEVO, VASO AND ELISABET GTT FOR MAP>65. PT HEREDIA IN COLOR, DELAYED CAP REFILL. ANASCARSA. ABD FIRM, DISTENDED, NO BT AUSCULTATED. NGT TO LIS, SCANT RED DRAINAGE OUT. IRRIGATED s INCREASE IN OUTPUT. ONE UNIT PRBC TRANSFUSED. BRITTA AT BEDSIDE AT SHIFT CHANGE. CODE STATUS CHANGED TO DNR. STATES SHE PLANS TO TRANSITION TO COMFORT CARE AFTER CHILDREN COME TO VISIT. WILL CONTINUE FULL TREATMENT AT THIS TIME.
[2022-09-05 08:44] VITALS: BP 144/49
--- NOTE | 2022-09-05 08:52 | NUR ---
Spiritual care visit conducted. Patient is declining, and spouse Jazzy is called in by MERCEDEZ Raymundo. I discuss with Jazzy, end of life decisions, home options and what family members she would like to have with her before extubation. I provide prayer with Jazzy, who becomes tearful but is voices appreciation for the prayer. I stay with Lindsay until a couple of friends arrive to give emotional support. I will continue to check on Jazzy and family and friends as things unfold and most likely provide a hand-off to [employer] Attacherbetito De La Cruz, as my shift will end early today.
--- NOTE | 2022-09-05 10:15 | NUR ---
Spiritual Care: General Internist handoff General Internist Kalpesh introduced this nitriles lab technician who will be supporting the family today and through the weekend if needed. Pt. is intubated and non repsonsive. Spouse is present at bedside with supportive friends. Facilitated a life review and established a measure of rapport. Prayed with those present. Spouse verbalized gratitude for the spiritual care and medical support she has received. This [employer] lab technician gave an update to attending nurse Awilda and will remain available throughout this shift.
[2022-09-05 11:27] VITALS: BP 151/54
--- NOTE | 2022-09-05 13:36 | NUR ---
EXTUBATION/COMFORT CARE ALL FAMILY ARRIVED AT BEDSIDE. DECISION MADE TO PROCEED c COMFORT CARE. PT EXTUBATED AT 1325, ALL PRESSORS PLACED ON STANDBY. FAMILY AT BEDSIDE. TOD 1333.
--- NOTE | 2022-09-05 14:10 | NUR ---
"Spiritual Care | EOL - [facility] Prior to extubation gathered family at bedside and led in a blessing over the Pt. TOD 13:33. Stayed with Spouse and family until they were ready to leave. Family verbalized gratitude for the spiritual care received. Family has chosen [facility] for cremation/ services."
--- NOTE | 2022-09-05 16:12 | NUR ---
pt placed on comfort and withdrawl of care. family and chaplian at bedside. family given hert strip, thumb prints and tyler cards. will follow up for support.
== END 2022-09-05 13:33 | DRG 871 ==
LOC: ER 14:02 → ICUE 16:06 → EDBEDREQ 17:07 → ICUE 09-01 18:27
PROVIDERS: Emergency Medicine; Family Medicine; Hospitalist; Internal Medicine Critical Care Medicine; Student in an Organized Health Care Education/Training Program; ADMIT Internal Medicine
PROC: 0T9B70Z Drainage of Bladder with Drainage Device, Via Natural or Artificial Opening (ICD-10-PCS; 2022-08-30)
PROC: 3E033XZ Introduction of Vasopressor into Peripheral Vein, Percutaneous Approach (ICD-10-PCS; 2022-08-30)
PROC: 3E03329 Introduction of Other Anti-infective into Peripheral Vein, Percutaneous Approach (ICD-10-PCS; 2022-08-30)
PROC: 02HV33Z Insertion of Infusion Device into Superior Vena Cava, Percutaneous Approach (ICD-10-PCS; 2022-08-31)
PROC: 5A1D70Z Performance of Urinary Filtration, Intermittent, Less than 6 Hours Per Day (ICD-10-PCS; 2022-09-01)
PROC: 5A09357 Assistance with Respiratory Ventilation, Less than 24 Consecutive Hours, Continuous Positive Airway Pressure (ICD-10-PCS; 2022-09-02)
PROC: 04HY32Z Insertion of Monitoring Device into Lower Artery, Percutaneous Approach (ICD-10-PCS; 2022-09-02)
PROC: 4A133B1 Monitoring of Arterial Pressure, Peripheral, Percutaneous Approach (ICD-10-PCS; 2022-09-02)
PROC: 4A133J1 Monitoring of Arterial Pulse, Peripheral, Percutaneous Approach (ICD-10-PCS; 2022-09-02)
PROC: B44LZZZ Ultrasonography of Femoral Artery (ICD-10-PCS; 2022-09-02)
PROC: 5A1945Z Respiratory Ventilation, 24-96 Consecutive Hours (ICD-10-PCS; principal; 2022-09-03)
PROC: 0BH17EZ Insertion of Endotracheal Airway into Trachea, Via Natural or Artificial Opening (ICD-10-PCS; 2022-09-03)
PROC: 0DH67UZ Insertion of Feeding Device into Stomach, Via Natural or Artificial Opening (ICD-10-PCS; 2022-09-03)
PROC: 02H633Z Insertion of Infusion Device into Right Atrium, Percutaneous Approach (ICD-10-PCS; 2022-09-03)
PROC: 5A0935A Assistance with Respiratory Ventilation, Less than 24 Consecutive Hours, High Flow/Velocity Cannula (ICD-10-PCS; 2022-09-03)
PROC: 30233N1 Transfusion of Nonautologous Red Blood Cells into Peripheral Vein, Percutaneous Approach (ICD-10-PCS; 2022-09-05)
PROC: 4A133R1 Monitoring of Arterial Saturation, Peripheral, Percutaneous Approach (ICD-10-PCS; 2022-09-05)
DX: A41.51 Sepsis due to Escherichia coli [E. coli] (principal); E43 Unspecified severe protein-calorie malnutrition; G92.8 Other toxic encephalopathy; J69.0 Pneumonitis due to inhalation of food and vomit; R65.21 Severe sepsis with septic shock; J96.01 Acute respiratory failure with hypoxia; N17.0 Acute kidney failure with tubular necrosis; J18.9 Pneumonia, unspecified organism; D62 Acute posthemorrhagic anemia; K92.2 Gastrointestinal hemorrhage, unspecified; S37.011A Minor contusion of right kidney, initial encounter; F11.20 Opioid dependence, uncomplicated; N39.0 Urinary tract infection, site not specified; D68.9 Coagulation defect, unspecified; E87.20 Acidosis, unspecified; N28.0 Ischemia and infarction of kidney; Z51.5 Encounter for palliative care; Z66 Do not resuscitate; I48.91 Unspecified atrial fibrillation; I25.10 Atherosclerotic heart disease of native coronary artery without angina pectoris; E78.5 Hyperlipidemia, unspecified; M54.9 Dorsalgia, unspecified; E87.5 Hyperkalemia; R33.9 Retention of urine, unspecified; E66.01 Morbid (severe) obesity due to excess calories; I12.9 Hypertensive chronic kidney disease with stage 1 through stage 4 chronic kidney disease, or unspecified chronic kidney disease; N18.9 Chronic kidney disease, unspecified; G89.4 Chronic pain syndrome; K74.60 Unspecified cirrhosis of liver; N31.9 Neuromuscular dysfunction of bladder, unspecified; D69.6 Thrombocytopenia, unspecified; G47.33 Obstructive sleep apnea (adult) (pediatric); S00.31XA Abrasion of nose, initial encounter; R54 Age-related physical debility; E88.09 Other disorders of plasma-protein metabolism, not elsewhere classified; R25.1 Tremor, unspecified; R74.01 Elevation of levels of liver transaminase levels; K72.90 Hepatic failure, unspecified without coma; R73.9 Hyperglycemia, unspecified; E16.2 Hypoglycemia, unspecified; Z20.822 Contact with and (suspected) exposure to COVID-19; W18.30XA Fall on same level, unspecified, initial encounter; Z88.8 Allergy status to other drugs, medicaments and biological substances; Z98.890 Other specified postprocedural states; Z87.891 Personal history of nicotine dependence; Z95.5 Presence of coronary angioplasty implant and graft; Z95.1 Presence of aortocoronary bypass graft; Z86.79 Personal history of other diseases of the circulatory system; Z91.81 History of falling; Z79.01 Long term (current) use of anticoagulants; Z79.02 Long term (current) use of antithrombotics/antiplatelets; Z79.899 Other long term (current) drug therapy; Z86.73 Personal history of transient ischemic attack (TIA), and cerebral infarction without residual deficits; Z68.38 Body mass index [BMI] 38.0-38.9, adult
CPT/HCPCS: 0241U; 31500; 36415; 36430; 36556; 36569; 36600; 36620; 51702; 70450; 71045; 74177; 80048; 80053; 80069; 80074; 80202; 81001; 82140; 82330; 82533; 82550; 82570; 82803; 82947; 83605; 83690; 83735; 83880; 84100; 84300; 84484; 85025; 85027; 85384; 85610; 85730; 86317; 86850; 86900; 86901; 86923; 87040; 87070; 87077; 87086; 87186; 87205; 93005; 93010; 94002; 94003; 94660; 94762; 96365-59; 96368; 96375-59; 99285-25; A9270; C1751; C1752; C8929; C9113; J0282; J0612; J0692; J1630; J1815; J2250; J2371; J2543; J2704; J3010; J3370; J7030; J7040; J7042; J7050; J7060; J7070; J7120; P9016; P9047; Q9957; Q9967